=== PATIENT | male | born 1950 | race Caucasian/White ===

== ENCOUNTER 2016-04-11 16:56 | Inpatient (IN) | payer OTHER ==
--- NOTE | 2016-04-11 17:25 | EDPHY ---
H & P Time Seen by Provider: 04/11/16 17:06 HPI/ROS: Chief complaint. Cough HPI. Patient is 65-year-old male presents emergency department with cough and low-grade fever. He has had a cough and low-grade fever. He was on cruise and went to an urgent care in floor just several weeks ago on March 26 and was diagnosed with URI and treated with amoxicillin. Over the past 3 days he has had exertional dyspnea. He has pain in his right ribs with cough and deep breathing. Fever to 100.2 degrees. He also has history of bone marrow transplant, leukemia. ROS Constitutional. Fever and weakness Eyes. no problems with vision ENT. no sore throat, no nasal drainage Cardiovascular. Right-sided chest pain Respiratory. Shortness of breath and cough Abdominal. no abdominal pain, no nausea/vomiting, no diarrhea . no problems urinating MS. no calf pain/swelling, no neck/back pain, no joint pain Skin. no rash Lymph. no swollen glands Neuro. no headache, no dizziness, no difficulty walking or with speech Past Medical/Surgical History: Past medical history hypertension, leukemia, pulmonary embolus, bone marrow transplant, prostate cancer, appendectomy Social History: , nonsmoker, no alcohol Smoking Status: Never smoked Physical Exam: General Appearance: Alert well-developed male temp 37.8degrees heart rate 131 O2 saturation room air 83%. Moderate distress Eyes: Pupils equal and round no pallor or injection. ENT, Mouth: Mucous membranes are moist. Respiratory: No retractions. Rales right lower lung Cardiovascular: Regular rate and rhythm with tachycardia Gastrointestinal: Abdomen is soft and nontender, no masses, bowel sounds normal. Neurological: Awake and alert, sensory and motor exams grossly normal. Skin: Warm and dry, no rashes. Musculoskeletal: Neck is supple nontender. Extremities symmetrical, full range of motion. Psychiatric: Patient is oriented X 3, there is no agitation. Constitutional: Initial Vital Signs Temperature (C) 37.8 C 04/11/16 16:57 Heart Rate 131 H 04/11/16 16:57 Respiratory Rate 22 H 04/11/16 16:57 Blood Pressure 154/87 H 04/11/16 16:57 O2 Sat (%) 83 L 04/11/16 16:57 O2 Delivery Mode Nasal Cannula O2 (L/minute) 2 Allergies/Adverse Reactions: HAYFEVER Allergy (Mild, Uncoded 04/06/15 09:37) SNEEZE, RUNNY NOSE Home Medications: Medication Instructions Recorded Cholecalciferol Vit D3 [Vitamin D3 1,000 units PO DAILY 05/25/14 (*)] Multivitamins [Multivitamin (*)] 1 tab PO DAILY 05/25/14 Herbals/Supplements -Info Only 1 ea PO DAILY 03/20/15 Acyclovir [Zovirax 400 mg (*)] 800 mg PO BID 09/27/15 Potassium Cl [Klor-Con 20 meq (*)] 20 meq PO DAILY 09/27/15 Aspirin EC [Aspirin EC 81 mg (*)] 81 mg PO DAILY@18 11/07/15 Medical Decision Making - Diagnostics EKG Interpretation: EKG interpreted by me shows sinus tachycardia with normal interval. Left axis deviation. QRS is otherwise normal. No significant ST elevation or depression. Rate is 114 Imaging: Chest x-ray interpreted my by me shows bilateral lower lobe pneumonia Procedures: IV normal saline. Blood cultures, lactate Lactate is elevated. The patient has pneumonia. He is not hypotensive. Severe sepsis is declared Patient is given IV Levaquin, and 30 milliliter/kilogram fluid bolus. Repeat lactate is ordered ED Course/Re-evaluation: Re-evaluation 6:10 p.m. patient, his , and I discussed imaging lab results, . We discussed treatment plan including need for admission. They expressed understanding and agreement I consulted and discussed case with Dr. Jeffries, hospitalist who agrees to the admission Differential Diagnosis: I considered pneumonia, bronchitis, influenza, acute coronary syndrome, pulmonary embolus. The patient has a fever and elevated white blood cell count and findings consistent with pneumonia on his chest x-ray. His lactate is elevated and I have declared severe sepsis. He has had blood cultures and antibiotics and 30 milliliter/kilogram fluid bolus. He is not hypotensive Critical Care Time: Critical care time exclusive procedures 40 minutes - Data Points Laboratory Results: Laboratory Results 04/11/16 17:20 04/11/16 17:20 04/11/16 04/11/16 04/11/16 17:20 17:20 17:20 WBC 18.99 10^3/uL H 10^3/uL (3.80-9.50) RBC 3.61 10^6/uL L 10^6/uL (4.40-6.38) Hgb 12.6 g/dL L g/dL (13.7-17.5) Hct 36.8 % L % (40.0-51.0) MCV 101.9 fL H fL (81.5-99.8) MCH 34.9 pg H pg (27.9-34.1) MCHC 34.2 g/dL g/dL (32.4-36.7) RDW 13.8 % % (11.5-15.2) Plt Count 105 10^3/uL L 10^3/uL (150-400) MPV 10.3 fL fL (8.7-11.7) Neut % (Auto) Not Reported Lymph % (Auto) Not Reported [place] % (Auto) Not Reported Eos % (Auto) Not Reported Baso % (Auto) Not Reported Nucleat RBC Rel Count 0.0 % % (0.0-0.2) Absolute Neuts (auto) Not Reported Absolute Lymphs (auto) Not Reported Absolute Monos (auto) Not Reported Absolute Eos (auto) Not Reported Absolute Basos (auto) Not Reported Absolute Nucleated RBC 0.00 10^3/uL 10^3/uL (0-0.01) Immature Gran % Not Reported Immature Gran # Not Reported Platelet Estimate Pending PT 21.4 SEC H SEC (12.0-15.0) INR 1.85 H (0.83-1.16) APTT 35.2 SEC SEC (23.0-38.0) VBG Lactic Acid Sodium 137 mEq/L mEq/L (134-144) Potassium 4.0 mEq/L mEq/L (3.5-5.2) Chloride 101 mEq/L mEq/L (97-110) Carbon Dioxide 22 mEq/l mEq/l (22-31) Anion Gap 14 mEq/L mEq/L (8-16) BUN 11 mg/dL mg/dL (7-23) Creatinine 0.9 mg/dL mg/dL (0.7-1.3) Estimated GFR > 60 Glucose 179 mg/dL H mg/dL (70-100) Calcium 8.8 mg/dL mg/dL (8.5-10.4) Total Bilirubin 1.3 mg/dL mg/dL (0.1-1.4) Influenza Typ A,B (DFA) 04/11/16 04/11/16 17:20 17:17 WBC RBC Hgb Hct MCV MCH MCHC RDW Plt Count MPV Neut % (Auto) Lymph % (Auto) [place] % (Auto) Eos % (Auto) Baso % (Auto) Nucleat RBC Rel Count Absolute Neuts (auto) Absolute Lymphs (auto) Absolute Monos (auto) Absolute Eos (auto) Absolute Basos (auto) Absolute Nucleated RBC Immature Gran % Immature Gran # Platelet Estimate PT INR APTT VBG Lactic Acid 2.2 mmol/L H mmol/L (0.7-2.1) Sodium Potassium Chloride Carbon Dioxide Anion Gap BUN Creatinine Estimated GFR Glucose Calcium Total Bilirubin Influenza Typ A,B (DFA) NEGATIVE FOR FLU (NEGATIVE) Medications Given: Discontinued Medications Sodium Chloride (Ns) 1,000 mls @ 0 mls/hr IV ONCE ONE PRN Reason: Wide Open Stop: 04/11/16 17:36 Last Admin: 04/11/16 17:30 Dose: 1,000 mls Departure - Departure Disposition: [facility] [place] Inpatient Acute Clinical Impression: Severe sepsis Pneumonia Qualifiers: Pneumonia type: due to unspecified organism Laterality: bilateral Lung location : lower lobe of lung Qualified Code(s): J18.9 - Pneumonia, unspecified organism Condition: Fair Referrals: Jordyn Bravo MD [Primary Care Provider] - As per Instructions
[2016-04-11] MEDS: NS 1,000 ML IV ONE ×2 (17:30→18:45)
[2016-04-11 17:43] LABS: ADD MORPH? NO; FRAGMENT RBC FLAG 0 (0-99); HEMATOCRIT 36.8 % (40.0-51.0); HEMOGLOBIN 12.6 g/dL (13.7-17.5); LEFT SHIFT FLG 10 (0-99); LIPEMIA HEMOLYSIS FLAG 90 (0-99); MEAN CELL HEMOGLOBIN 34.9 pg (27.9-34.1); MEAN CELL HEMOGLOBIN CONCENTR. 34.2 g/dL (32.4-36.7); MEAN CELL VOLUME 101.9 fL (81.5-99.8); MEAN PLATELET VOLUME 10.3 fL (8.7-11.7); PLATELET CLUMPS FLAG 0 (0-99); PLATELET COUNT 105 10^3/uL (150-400); RED BLOOD CELL COUNT 3.61 10^6/uL (4.40-6.38); RED CELL DISTRIBUTION WIDTH 13.8 % (11.5-15.2)
[2016-04-11 17:45] LABS: ADD DIFF? YES; ADD SCAN? NO; ATYPICAL LYMPHOCYTE FLAG 300 (0-99)
[2016-04-11 17:57] LABS: INR 1.85 (0.83-1.16); PROTIME(PATIENT) 21.4 SEC (12.0-15.0)
[2016-04-11 17:58] LABS: APTT 35.2 SEC (23.0-38.0)
[2016-04-11] MEDS ORDERED: NS 1,000 ML BAG *FOR SEPSIS ORDER SET ONLY IV ONE (18:10)
[2016-04-11 18:11] LABS: ANION GAP 14 mEq/L (8-16); BILIRUBIN,TOTAL 1.3 mg/dL (0.1-1.4); CALCIUM 8.8 mg/dL (8.5-10.4); CARBON DIOXIDE 22 mEq/l (22-31); CHLORIDE 101 mEq/L (97-110); CREATININE 0.9 mg/dL (0.7-1.3); GLOMERULAR FILTRATION RATE > 60; GLUCOSE 179 mg/dL (70-100); SODIUM 137 mEq/L (134-144)
[2016-04-11 18:30] LABS: PLATELET ESTIMATE DECREASED (ADEQ)
[2016-04-11] MEDS ORDERED: ACETAMINOPHEN 325 MG TAB PO PRN (19:02)
[2016-04-11] MEDS ORDERED: ONDANSETRON 4 MG/2 ML VIAL IVP PRN (19:02)
[2016-04-11] MEDS ORDERED: ONDANSETRON DISINTEGRATING 4 MG TAB PO PRN (19:02)
[2016-04-11] MEDS ORDERED: IOPAMIDOL (ISOVUE-300) 100 ML BTL IV ONE (19:06)
[2016-04-11 19:37] LABS: BILIRUBIN,TOTAL 1.3 mg/dL (0.1-1.4); BILIRUBIN-CONJUGATED 0.6 mg/dL (0.0-0.5); BILIRUBIN-UNCONJUGATED 0.7 mg/dL (0.0-1.1); TOTAL PROTEIN 8.1 g/dL (6.3-8.2)
--- NOTE | 2016-04-11 19:59 | GHP ---
[f rep st] HISTORY AND PHYSICAL DATE OF ADMISSION: 04/11/2016 CHIEF COMPLAINT: Shortness of breath, fever. HISTORY OF PRESENT ILLNESS: This is a 65-year-old man who presents with chief complaint of shortnes s of breath, cough and fever. 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 He went on a cruise about a month ago. During the cruise, he began to have so me malaise and developed a cough. He presented to urgent care after this, was prescribed amoxicilli n for 10 days. He felt slightly better while taking this. He has since returned home. Over the week, he has begun to feel more malaised, his cough has been returning. He has felt significantl y worse over the weekend. Thus, he eventually presented to the emergency department. He does have a history of a pulmonary embolus. He is not on anticoagulation. He does not have any new or change d swelling in his lower extremities. He has had some fevers at home as well. His cough is nonprodu ctive with no hemoptysis. PAST MEDICAL/SURGICAL HISTORY: 1. History of bone marrow transplant last May at [facility] due to T-cell lymphocytic leukemia. 2. Atrial fibrillation in the setting of his bone marrow transplant. 3. History of prostate cancer status post prostatectomy. 4. History of a PE 1 year ago, not on anticoagulation. 5. Hypertension. 6. Hyperlipidemia. MEDICATIONS: Please see medication reconciliation. ALLERGIES: Hay fever. FAMILY HISTORY: No leukemia. SOCIAL HISTORY: Rarely drinks. He does not smoke. REVIEW OF SYSTEMS: A 10-point review of systems is conducted and is negative except per HPI. PHYSICAL EXAMINATION: VITAL SIGNS: Blood pressure 154/87, heart rate is 131, respiration rate 22, satting 93% on room air, temperature is 37.8, T-max 38.2. GENERAL: The patient is a pleasant man, lying on his side, appears mildly uncomfortable, in moderate respiratory distress. HEENT: Pupils e qual, round, reactive. He is normocephalic atraumatic. CARDIOVASCULAR: Tachycardic. There are no murmurs, rubs, or gallops. PULMONARY: Bilateral basilar crackles. ABDOMEN: Soft, nontender, non distended. SKIN: No rash. : No Taylor. NEUROLOGIC: Alert and oriented x3. He is moving all e xtremities. PSYCHIATRIC: Normal mood and affect. LABS: White count is 18.9, hemoglobin 12.6, platelets are 105, INR is 1.8. Lactate is 2.2. Basic metabolic panel is unremarkable. He is negative for influenza. DATA: 1. I reviewed his chart. 2. I personally reviewed and interpreted his chest x-ray, shows bilateral lower lobe infiltrates. IMPRESSION AND PLAN: This is a 65-year-old man with hypoxic respiratory failure. 1. Acute hypoxic respiratory failure: May be due to pneumonia, but given his recent travel history , of PE, and marked hypoxia, I think it is reasonable to get a CT angiogram. I have ordered this. Otherwise, we will treat him with Levaquin for a community-acquired pneumonia. I will check Legione lla and urine antigen and streptococcal antigen. He is positive for pulmonary embolus, would antico agulate him. 2. Systemic inflammatory response syndrome with suspected sepsis: He has elevated lactate. He has received appropriate fluid bolus in the emergency department. We will recheck his lactate. 3. Coagulopathy: I am not sure what to make of this. I have checked LFTs. He has been coagulopat hic in the past. 4. History of atrial fibrillation: Not in atrial fibrillation now. 5. Code status. He would like to be full code. He would not want prolonged life support if he wer e "brain .". 6. VTE risk: He is [id number] risk. I would give him prophylactic dose of Lovenox unless he has pulmonary embolus. /[id number]/MODL
[2016-04-11 20:05] LABS: COLOR YELLOW; LEUKOCYTE ESTERASE,URINE NEGATIVE (NEGATIVE); NITRITE,URINE NEGATIVE (NEGATIVE)
[2016-04-11] MEDS: ENOXAPARIN 100 MG/ML SYR SC SCH (20:43)
[2016-04-11] MEDS ORDERED: CANN-EASE 2 GM TUBE TP PRN (20:45)
[2016-04-11] MEDS: guaiFENesin/CODEINE PHOS 10 ML UDCUP PO PRN (21:44)
[2016-04-11] MEDS: NS 1,000 ML IV SCH (21:44)
--- NOTE | 2016-04-12 04:48 | CPEKG ---
Heart Rate: 114 RR Interval: 526 P-R Interval: 160 QRSD Interval: 86 QT Interval: 344 QTC Interval: 474 P [place]: 53 QRS [place]: -14 T Wave [place]: 37 EKG Severity - OTHERWISE NORMAL ECG - EKG Impression: SINUS TACHYCARDIA Electronically Signed By: Dennis Myers 12-Apr-2016 08:02:36
[2016-04-12] MEDS: guaiFENesin/CODEINE PHOS 10 ML UDCUP PO PRN ×3 (05:27→21:48)
[2016-04-12 05:33] LABS: ADD MORPH? NO; ADD SCAN? YES; FRAGMENT RBC FLAG 0 (0-99); HEMATOCRIT 31.9 % (40.0-51.0); HEMOGLOBIN 10.6 g/dL (13.7-17.5); LEFT SHIFT FLG 20 (0-99); LIPEMIA HEMOLYSIS FLAG 80 (0-99); MEAN CELL HEMOGLOBIN 34.8 pg (27.9-34.1); MEAN CELL HEMOGLOBIN CONCENTR. 33.2 g/dL (32.4-36.7); MEAN CELL VOLUME 104.6 fL (81.5-99.8); MEAN PLATELET VOLUME 10.3 fL (8.7-11.7); PLATELET CLUMPS FLAG 30 (0-99); PLATELET COUNT 81 10^3/uL (150-400); RED BLOOD CELL COUNT 3.05 10^6/uL (4.40-6.38); RED CELL DISTRIBUTION WIDTH 14.3 % (11.5-15.2)
[2016-04-12 05:47] LABS: ANION GAP 8 mEq/L (8-16); CARBON DIOXIDE 23 mEq/l (22-31); CHLORIDE 104 mEq/L (97-110); CREATININE 0.9 mg/dL (0.7-1.3); GLOMERULAR FILTRATION RATE > 60; GLUCOSE 148 mg/dL (70-100); POTASSIUM 4.2 mEq/L (3.5-5.2); SODIUM 135 mEq/L (134-144)
[2016-04-12 05:48] LABS: ATYPICAL LYMPHOCYTE FLAG 300 (0-99)
[2016-04-12 06:09] LABS: ADD DIFF? YES; SCAN POSITIVE
[2016-04-12 06:14] LABS: LARGE PLATELETS PRESENT; PLATELET ESTIMATE DECREASED (ADEQ)
[2016-04-12] MEDS: NS 1,000 ML IV SCH (07:26)
[2016-04-12] MEDS ORDERED: ENOXAPARIN 40 MG/0.4 ML SYR SC SCH (09:00)
[2016-04-12] MEDS: ENOXAPARIN 100 MG/ML SYR SC SCH ×2 (09:40→20:30)
--- NOTE | 2016-04-12 14:34 | HOSPPROG ---
Hospitalist Progress Note Assessment/Plan: #Acute on Chronic P.E -CTA c/w bilateral P.E. R > L #Right sided CAP #Hypoxemia #Hx of HTN, no longer on meds #Hx of T-Cell Leukemia #Hx of Prostate Cancer #Coagulopathy, etiology unclear #Thrombocytopenia, mild Plan: -Stop IVF -Cont Levaquin -Cont Lovenox. He wants to do Pradaxa fpc -Check TTE -Check LE US -Place Telemetry -Recheck labs, INR in a.m. -Await cultures S: Feels better Still with some pain when taking a deep breath Afebrile O: VSS NAD AAOX3 RRR Decreased BS S/NT/ND NO EDEMA LABS/STUDIES: REVIEWED TOTAL CARE TIME IS 35 MINUTES Objective: Vital Signs Temp Pulse Resp BP Pulse Ox 36.9 C 120 H 16 110/72 92 04/12/16 12:00 04/12/16 12:00 04/12/16 12:00 04/12/16 12:00 04/12/16 12:00 Microbiology 04/12/16 05:00 - Final Sputum, Expectorated Laboratory Results 04/12/16 04:44 04/12/16 04:44 04/11/16 04/12/16 04/13/16 05:59 05:59 05:59 Intake Total 4215 Output Total 900 1350 Balance 3315 -1350 PT 21.4 SEC (12.0-15.0) H 04/11/16 17:20 INR 1.85 (0.83-1.16) H 04/11/16 17:20 ICD10 Worksheet Patient Problems: Problems Problem Status Onset Pneumonia Acute Severe sepsis Acute Adenocarcinoma of prostate Acute Anemia Acute Fever Acute Left sided chest pain Acute Left upper arm pain Acute Syncope and collapse Acute
--- NOTE | 2016-04-12 16:51 | ECHO ---
[id number] + + [address] : : [place] [address] : : [phone] + + Adult Echocardiographic Report + -------+ :Name: MELANI LUKE MStudy Date: 04/12/2016 02:35 PM : : Hospital Admission Number: [id number] Locati on: 383: :: 1950 Gender: Male Height: 68 in : :Age: 65 yrs Race: WH Weight: 209 lb : :Reason For Study: Eval RV Fx : : BSA: 2.1 meter s2 : :History: Tachycardia, P.E. Hx of Leukemia, Bone Marrow, PNA : + -------+ MMode/2D Measurements \T\ Calculations IVSd: 0.90 cm LVIDd: 4.2 cm FS: 48.1 % Ao root diam: 3.3 cm LVPWd: 1.0 cm LVIDs: 2.2 cm EDV(Teich): 79.2 ml ACS: 2.0 cm ESV(Teich): 16.0 ml LA dimension: 3.3 cm EF(Teich): 79.8 % Normal Measurement Values: + + :LVIDd (3.5-5.7cm) IVSd (0.6-1.1cm) LVPWd (0.6-1.1cm) Aortic Root (2.0-3.7cm)Left Atrium (1.5-4.0cm): :LV Vol(d) (76-115ml) LV Vol(s) (29-48ml) Ejec Fraction (50-65%)PV Jeferson (0.6- 1.2m/s) TV Jeferson (0.4-1.0m/s) : :MV E Jeferson (0.8-1.0m/s)MV A Jeferson (0.3-1.0m/s)LVOT Jeferson (0.7-1.2m/s) Asc Ao Jeferson ( 0.9-1.8m/s) : + + Doppler Measurements \T\ Calculations MV E max jeferson: Ao V2 max: LV V1 max: PA V2 max: 64.7 cm/sec 179.2 cm/sec 119.4 cm/sec 107.2 cm/sec MV A max jeferson: Ao max PG: LV V1 max PG: PA max P.8 cm/sec 12.8 mmHg 5.7 mmHg 4.6 mmHg MV E/A: 0.70 TR max jeferson: 286.4 cm/sec TR max P.8 mmHg RAP systole: 5.0 mmHg RVSP(TR): 37.8 mmHg Left Ventricle The left ventricle is normal in size. There is normal left ventricular wall thickness. The left ventricular ejection fraction is normal. Tachycardia. Right Ventricle The right ventricle is normal in size and function. Atria The left atrial size is normal. Right atrial size is normal. Mitral Valve The mitral valve is normal in structure and function. There is no evidence of mitral valve prolapse. There is no mitral valve stenosis. There is no mitral regurgitation noted. Tricuspid Valve Normal tricuspid valve. There is trace tricuspid regurgitation. Right ventricular systolic pressure is normal. Aortic Valve The aortic valve is normal in structure and function. There is no aortic stenosis. There is no aortic insufficiency. Pulmonic Valve The pulmonic valve is normal in structure and function. There is no pulmonic valvular regurgitation. Great Vessels The aortic root is normal size. Pericardium/Pleural There is no pericardial effusion. Conclusion A complete two-dimensional transthoracic echocardiogram was performed (2D, M-mode, Doppler and color flow Doppler). Fair image quality. The left ventricular ejection fraction is normal. The right ventricle is normal in size and function. Normal appearing valvular structures. There is trace tricuspid regurgitation. Right ventricular systolic pressure is normal. There is no pericardial effusion. Final Reading Physician: Bhavya James signed on 04/12/2016 04:49 PM Ordering Physician: Kailash Sanchez Performed By: Milton Song, CS
[2016-04-12] MEDS: ATORVASTATIN CALCIUM 20 MG TAB PO SCH (20:31)
[2016-04-13 06:17] LABS: % IMMATURE GRANULYOCYTES 0.6 % (0.0-1.1); ABSOLUTE IMMATURE GRANULOCYTES 0.12 10^3/uL (0.00-0.10); ADD DIFF? NO; ADD MORPH? NO; ADD SCAN? YES; FRAGMENT RBC FLAG 0 (0-99); HEMATOCRIT 31.1 % (40.0-51.0); HEMOGLOBIN 10.3 g/dL (13.7-17.5); LEFT SHIFT FLG 10 (0-99); LIPEMIA HEMOLYSIS FLAG 80 (0-99); MEAN CELL HEMOGLOBIN 34.7 pg (27.9-34.1); MEAN CELL HEMOGLOBIN CONCENTR. 33.1 g/dL (32.4-36.7); MEAN CELL VOLUME 104.7 fL (81.5-99.8); MEAN PLATELET VOLUME 10.2 fL (8.7-11.7); PLATELET CLUMPS FLAG 0 (0-99); PLATELET COUNT 79 10^3/uL (150-400); RED BLOOD CELL COUNT 2.97 10^6/uL (4.40-6.38); RED CELL DISTRIBUTION WIDTH 14.3 % (11.5-15.2)
[2016-04-13 06:18] LABS: ATYPICAL LYMPHOCYTE FLAG 300 (0-99)
[2016-04-13 06:21] LABS: ANION GAP 10 mEq/L (8-16); CALCIUM 8.3 mg/dL (8.5-10.4); CARBON DIOXIDE 26 mEq/l (22-31); CHLORIDE 99 mEq/L (97-110); CREATININE 0.9 mg/dL (0.7-1.3); GLOMERULAR FILTRATION RATE > 60; GLUCOSE 158 mg/dL (70-100); SODIUM 135 mEq/L (134-144)
[2016-04-13 06:50] LABS: SCAN POSITIVE
[2016-04-13 07:01] LABS: POLYCHROMASIA 1+
[2016-04-13 07:02] LABS: PLATELET ESTIMATE DECREASED (ADEQ)
[2016-04-13] MEDS: ENOXAPARIN 100 MG/ML SYR SC SCH (09:35)
[2016-04-13] MEDS: MULTIVITAMINS 1 EACH TAB PO SCH (09:40)
[2016-04-13] MEDS: CHOLECALCIFEROL VIT D3 1,000 UNITS TAB PO SCH (09:40)
[2016-04-13] MEDS: guaiFENesin/CODEINE PHOS 10 ML UDCUP PO PRN ×2 (11:24→21:51)
[2016-04-13] MEDS: oxyCODONE IR 5 MG TAB PO PRN ×2 (12:16→17:57)
--- NOTE | 2016-04-13 15:00 | HOSPPROG ---
Hospitalist Progress Note Assessment/Plan: #Acute on Chronic P.E, Left Popliteal non occlusive clot, unclear chronicity -CTA c/w bilateral P.E. R > L -AC per below #Right sided CAP #Persistent Leukocytosis #Hypoxemia #Hx of HTN, no longer on meds #Hx of T-Cell Leukemia #Hx of Prostate Cancer #Coagulopathy, etiology unclear #Thrombocytopenia Plan: -Stop Levaquin. Start Zosyn -Stop Lovenox. Start Xarelto -Telemetry -Recheck labs, INR in a.m. -Await cultures S: Feels better Still with some pain when taking a deep breath Afebrile Platelets down restart Acyclovir Repeat INR in a.m. O: VSS NAD AAOX3 RRR Decreased BS S/NT/ND NO EDEMA LABS/STUDIES: REVIEWED TOTAL CARE TIME IS 35 MINUTES Objective: Vital Signs Temp Pulse Resp BP Pulse Ox 36.9 C 111 H 28 H 115/77 92 04/13/16 11:33 04/13/16 11:33 04/13/16 11:33 04/13/16 11:33 04/13/16 11:33 Microbiology 04/12/16 05:00 - Final Sputum, Expectorated Laboratory Results 04/13/16 05:11 04/13/16 05:11 04/12/16 04/13/16 04/14/16 05:59 05:59 05:59 Intake Total 4215 2393 780 Output Total 900 2050 Balance 3315 343 780 PT 21.4 SEC (12.0-15.0) H 04/11/16 17:20 INR 1.85 (0.83-1.16) H 04/11/16 17:20 ICD10 Worksheet Patient Problems: Problems Problem Status Onset Pneumonia Acute Severe sepsis Acute Adenocarcinoma of prostate Acute Anemia Acute Fever Acute Left sided chest pain Acute Left upper arm pain Acute Syncope and collapse Acute
[2016-04-13] MEDS: ACYCLOVIR 400 MG TAB PO SCH ×2 (15:49→21:43)
[2016-04-13] MEDS: RIVAROXABAN 15 MG TAB PO SCH (17:32)
[2016-04-13] MEDS: PIPERACILLIN/TAZO 3.375 GM/DEX 50 ML IV SCH (17:32)
[2016-04-13] MEDS ORDERED: NS 1,000 ML IV ONE (18:55)
[2016-04-13] MEDS ORDERED: BISACODYL 10 MG SUPP PR PRN (19:16)
[2016-04-13] MEDS ORDERED: POLYETHYLENE GLYCOL 3350 17 GM PKT PO PRN (19:16)
[2016-04-13] MEDS ORDERED: LACTULOSE 20 GM/30 ML UDCUP PO PRN (19:16)
--- NOTE | 2016-04-13 19:27 | CPEKG ---
Heart Rate: 123 RR Interval: 488 P-R Interval: 164 QRSD Interval: 90 QT Interval: 324 QTC Interval: 464 P [place]: 38 QRS [place]: -44 T Wave [place]: 5 EKG Severity - ABNORMAL ECG - EKG Impression: SINUS TACHYCARDIA EKG Impression: LEFT AXIS DEVIATION EKG Impression: CONSIDER ANTERIOR INFARCT EKG Impression: BORDERLINE T ABNORMALITIES, ANTERIOR LEADS Electronically Signed By: Dennis Myers 14-Apr-2016 07:44:48
[2016-04-13 19:50] LABS: TROPONIN I < 0.012 ng/mL (0-0.034)
[2016-04-13] MEDS: SENNOSIDES/DOCUSATE SODIUM TAB PO SCH (21:43)
[2016-04-13] MEDS: ATORVASTATIN CALCIUM 20 MG TAB PO SCH (21:43)
[2016-04-14] MEDS: oxyCODONE IR 5 MG TAB PO PRN ×5 (02:14→23:43)
[2016-04-14] MEDS: PIPERACILLIN/TAZO 3.375 GM/DEX 50 ML IV SCH ×2 (05:23)
[2016-04-14 06:04] LABS: ABSOLUTE IMMATURE GRANULOCYTES 0.15 10^3/uL (0.00-0.10); ADD DIFF? NO; ADD MORPH? NO; ADD SCAN? YES; FRAGMENT RBC FLAG 0 (0-99); HEMATOCRIT 28.7 % (40.0-51.0); HEMOGLOBIN 9.5 g/dL (13.7-17.5); LEFT SHIFT FLG 10 (0-99); LIPEMIA HEMOLYSIS FLAG 80 (0-99); MEAN CELL HEMOGLOBIN 34.5 pg (27.9-34.1); MEAN CELL HEMOGLOBIN CONCENTR. 33.1 g/dL (32.4-36.7); MEAN CELL VOLUME 104.4 fL (81.5-99.8); MEAN PLATELET VOLUME 10.6 fL (8.7-11.7); PLATELET CLUMPS FLAG 10 (0-99); PLATELET COUNT 75 10^3/uL (150-400); RED BLOOD CELL COUNT 2.75 10^6/uL (4.40-6.38); RED CELL DISTRIBUTION WIDTH 14.3 % (11.5-15.2)
[2016-04-14 06:10] LABS: INR 4.83 (0.83-1.16); PROTIME(PATIENT) 46.2 SEC (12.0-15.0)
[2016-04-14 06:14] LABS: TROPONIN I < 0.012 ng/mL (0-0.034)
[2016-04-14 06:16] LABS: ANION GAP 9 mEq/L (8-16); ATYPICAL LYMPHOCYTE FLAG 300 (0-99); CALCIUM 7.9 mg/dL (8.5-10.4); CARBON DIOXIDE 25 mEq/l (22-31); CHLORIDE 99 mEq/L (97-110); CREATININE 0.9 mg/dL (0.7-1.3); GLOMERULAR FILTRATION RATE > 60; GLUCOSE 167 mg/dL (70-100); POTASSIUM 3.6 mEq/L (3.5-5.2); SODIUM 133 mEq/L (134-144)
[2016-04-14 06:47] LABS: SCAN POSITIVE
[2016-04-14 07:09] LABS: POLYCHROMASIA 1+
[2016-04-14 07:10] LABS: PLATELET ESTIMATE DECREASED (ADEQ)
[2016-04-14 07:11] LABS: MACROCYTES 1+
[2016-04-14] MEDS: RIVAROXABAN 15 MG TAB PO SCH ×2 (08:11→17:42)
[2016-04-14] MEDS: SENNOSIDES/DOCUSATE SODIUM TAB PO SCH ×2 (08:36→22:46)
[2016-04-14] MEDS: CHOLECALCIFEROL VIT D3 1,000 UNITS TAB PO SCH (08:37)
[2016-04-14] MEDS: ACYCLOVIR 400 MG TAB PO SCH ×2 (08:37→22:47)
[2016-04-14] MEDS: MULTIVITAMINS 1 EACH TAB PO SCH (08:37)
[2016-04-14] MEDS: guaiFENesin/CODEINE PHOS 10 ML UDCUP PO PRN ×2 (11:23→23:43)
[2016-04-14] MEDS: PIPERACILLIN SODIUM/TAZOBACTAM 3.375 GM in D5W 50 ML IV SCH ×3 (11:46→22:47)
[2016-04-14] MEDS: MAGNESIUM HYDROXIDE 30 ML UDCUP PO PRN (15:00)
--- NOTE | 2016-04-14 16:17 | HOSPPROG ---
Hospitalist Progress Note Assessment/Plan: #Acute on Chronic P.E, -CTA c/w bilateral P.E. R > L -Xarelto. Was previously on Lovenox. -Left Popliteal non occlusive clot, unclear chronicity #Right sided CAP -On zosyn, was initially on Levaquin #Persistent Leukocytosis, improving #Hypoxemia, stable on 5 L #Hx of HTN, no longer on meds #Hx of T-Cell Leukemia #Hx of Prostate Cancer #Coagulopathy, etiology unclear #Thrombocytopenia Plan: 65 yo male admitted for acute P.E., Right sided pneumonia, and Hypoxemia. Initially met SIRS criteria which resolved with treatment with IVF, IV abx., and PE treatment. He has been off IVF since Hosp day #1 and BP has been acceptable overall. This afternoon he has one isolated BP in the 90's systolic, but overall his BP has been stable. He has good urine output. Tachycardia is improving. He feels like he is able to take a deep breath. Abx were switched to Zosyn with improvement of leukocytosis and clinical improvement. Xarelto was started due to low platelets and need for a half-way agent. Overall he appears to be improving. Continue with all current mgmt. Will recheck labs in a.m.. Will also add a BNP. S: Feels better Still with some pain when taking a deep breath Afebrile Platelets down restart Acyclovir Repeat INR in a.m. O: VSS NAD AAOX3 RRR Decreased BS S/NT/ND NO EDEMA LABS/STUDIES: REVIEWED. WBC 14, Hgb 9.5, platelets: 75 Objective: Vital Signs Temp Pulse Resp BP Pulse Ox 36.8 C 118 H 22 H 98/69 L 94 04/14/16 15:46 04/14/16 15:46 04/14/16 15:46 04/14/16 15:46 04/14/16 15:46 Microbiology 04/12/16 05:00 - Final Sputum, Expectorated Sputum Culture - Final Laboratory Results 04/14/16 05:20 04/14/16 05:20 04/13/16 04/14/16 04/15/16 05:59 05:59 05:59 Intake Total 2393 980 1414 Output Total 0 Balance 530 518 5294 PT 46.2 SEC (12.0-15.0) H D 04/14/16 05:20 INR 4.83 (0.83-1.16) H 04/14/16 05:20 - Time Spent With Patient Time Spent with Patient: greater than 25 minutes Time Spent with Patient: Greater than 25 minutes spent on this patients care, greater than 50% of time spent counseling, educating, and coordinating care regarding the above mentioned plan. - Physical Exam Constitutional: no apparent distress, appears nourished, not in pain Eyes: PERRL, anicteric sclera, EOMI Ears, Nose, Mouth, Throat: moist mucous membranes, hearing normal, ears appear normal, no oral mucosal ulcers Cardiovascular: regular rate and rhythym, no murmur, rub, or gallop Respiratory: reduced air movement Gastrointestinal: normoactive bowel sounds, soft, non-tender abdomen, no palpable masses Genitourinary: no bladder fullness, no bladder tenderness, no renal bruits Skin: warm, normal color Neurologic: AAOx3, sensation intact bilaterally Psychiatric: interacting appropriately, not anxious, not encephalopathic, thought process linear ICD10 Worksheet Patient Problems: Problems Problem Status Onset Pneumonia Acute Severe sepsis Acute Adenocarcinoma of prostate Acute Anemia Acute Fever Acute Left sided chest pain Acute Left upper arm pain Acute Syncope and collapse Acute
[2016-04-14] MEDS: ATORVASTATIN CALCIUM 20 MG TAB PO SCH (22:47)
[2016-04-14] MEDS: OXYMETAZOLINE 30 ML NASAL SPRAY EACHNARE PRN (23:24)
[2016-04-15 05:50] LABS: ABSOLUTE NRBC COUNT 0.02 10^3/uL (0-0.01); ADD MORPH? NO; ADD SCAN? YES; FRAGMENT RBC FLAG 0 (0-99); HEMATOCRIT 26.8 % (40.0-51.0); HEMOGLOBIN 9.1 g/dL (13.7-17.5); LEFT SHIFT FLG 0 (0-99); LIPEMIA HEMOLYSIS FLAG 90 (0-99); MEAN PLATELET VOLUME 10.1 fL (8.7-11.7); NRBC-AUTO% 0.2 % (0.0-0.2); PLATELET CLUMPS FLAG 10 (0-99); PLATELET COUNT 81 10^3/uL (150-400); RED BLOOD CELL COUNT 2.68 10^6/uL (4.40-6.38); RED CELL DISTRIBUTION WIDTH 14.4 % (11.5-15.2)
[2016-04-15 05:51] LABS: ANION GAP 8 mEq/L (8-16); CALCIUM 7.7 mg/dL (8.5-10.4); CARBON DIOXIDE 28 mEq/l (22-31); CHLORIDE 95 mEq/L (97-110); CREATININE 0.8 mg/dL (0.7-1.3); GLOMERULAR FILTRATION RATE > 60; GLUCOSE 152 mg/dL (70-100); POTASSIUM 3.9 mEq/L (3.5-5.2); SODIUM 131 mEq/L (134-144)
[2016-04-15] MEDS: PIPERACILLIN SODIUM/TAZOBACTAM 3.375 GM in D5W 50 ML IV SCH ×3 (05:54→17:27)
[2016-04-15 05:58] LABS: ATYPICAL LYMPHOCYTE FLAG 300 (0-99)
[2016-04-15 06:29] LABS: ADD DIFF? YES; SCAN POSITIVE
[2016-04-15 06:40] LABS: MACROCYTES 1+; PLATELET ESTIMATE DECREASED (ADEQ)
[2016-04-15] MEDS: ACYCLOVIR 400 MG TAB PO SCH ×2 (07:44→21:20)
[2016-04-15] MEDS: oxyCODONE IR 5 MG TAB PO PRN ×2 (07:45→12:29)
[2016-04-15] MEDS: RIVAROXABAN 15 MG TAB PO SCH ×2 (07:45→17:27)
[2016-04-15] MEDS: CHOLECALCIFEROL VIT D3 1,000 UNITS TAB PO SCH (07:45)
[2016-04-15] MEDS: SENNOSIDES/DOCUSATE SODIUM TAB PO SCH ×2 (07:45→21:21)
[2016-04-15] MEDS: guaiFENesin/CODEINE PHOS 10 ML UDCUP PO PRN ×2 (07:46→18:16)
[2016-04-15] MEDS: MAGNESIUM HYDROXIDE 30 ML UDCUP PO PRN (07:46)
[2016-04-15] MEDS: MULTIVITAMINS 1 EACH TAB PO SCH (07:46)
[2016-04-15 09:12] LABS: INR 4.91 (0.83-1.16); PROTIME(PATIENT) 46.8 SEC (12.0-15.0)
[2016-04-15] MEDS ORDERED: PHYTONADIONE 2.5 MG/2.5 ML ORAL UDL PO ONE (09:37)
--- NOTE | 2016-04-15 15:48 | HOSPPROG ---
Hospitalist Progress Note Assessment/Plan: #Acute on Chronic P.E -CTA (personally reviewed and interpreted) bilateral P.E. visualized-Left Popliteal non occlusive clot unclear chronicity - cont Xarelto - cont supplemental O2 # Sepsis 2/2 pulmonary infection - tachycardia and elevated WBC on admit- Bcx NGTD - cont Zosyn # Acute epistaxis overnight - INR > 4 - will reverse with Vit K today # Right sided CAP -On zosyn, was initially on Levaquin # Persistent Leukocytosis- WBC 19-> 13 # Acute hypoxic respiratory failure 2/2 PE and CAP - cont supplementation and treatment above oxygen saturations 96% on 5L - cont Abx and anticoagulation # Hx of HTN- no longer on meds # Hx of T-Cell Leukemia # Hx of Prostate Cancer # Coagulopathy, etiology unclear # Thrombocytopenia Dispo - suspect 24-48 hours from dc 2/2 to epistaixs and control of anticoagulation I have discussed the case with RN - - giving vit K for epistaxis Subjective: nose has been bleeding since early am Objective: Vital Signs Temp Pulse Resp BP Pulse Ox 36.9 C 109 H 16 120/79 96 04/15/16 11:30 04/15/16 11:30 04/15/16 11:30 04/15/16 11:30 04/15/16 11:30 Microbiology 04/12/16 05:00 - Final Sputum, Expectorated Sputum Culture - Final Laboratory Results 04/15/16 04:50 04/15/16 04:50 04/14/16 04/15/16 04/16/16 05:59 05:59 05:59 Intake Total 980 2914 Balance 980 2914 PT 46.8 SEC (12.0-15.0) H 04/15/16 04:50 INR 4.91 (0.83-1.16) H 04/15/16 04:50 - Physical Exam Constitutional: appears nourished Eyes: anicteric sclera Ears, Nose, Mouth, Throat: moist mucous membranes Cardiovascular: regular rate and rhythym Respiratory: no respiratory distress Skin: warm, normal color Musculoskeletal: No asymmetric calves Neurologic: AAOx3 Psychiatric: interacting appropriately Lymph, Heme, Immunologic: no cervical LAD ICD10 Worksheet Patient Problems: Problems Problem Status Onset Pneumonia Acute Severe sepsis Acute Adenocarcinoma of prostate Acute Anemia Acute Fever Acute Left sided chest pain Acute Left upper arm pain Acute Syncope and collapse Acute
[2016-04-15] MEDS: ATORVASTATIN CALCIUM 20 MG TAB PO SCH (21:20)
[2016-04-16] MEDS: PIPERACILLIN SODIUM/TAZOBACTAM 3.375 GM in D5W 50 ML IV SCH ×5 (00:09→22:43)
[2016-04-16] MEDS: oxyCODONE IR 5 MG TAB PO PRN ×2 (00:13→21:33)
[2016-04-16 06:03] LABS: HEMATOCRIT 26.7 % (40.0-51.0); HEMOGLOBIN 8.8 g/dL (13.7-17.5); MEAN CELL HEMOGLOBIN 34.1 pg (27.9-34.1); MEAN CELL VOLUME 103.5 fL (81.5-99.8); RED BLOOD CELL COUNT 2.58 10^6/uL (4.40-6.38); RED CELL DISTRIBUTION WIDTH 14.4 % (11.5-15.2)
[2016-04-16] MEDS: guaiFENesin/CODEINE PHOS 10 ML UDCUP PO PRN ×2 (06:20→22:02)
[2016-04-16 06:33] LABS: PROTIME(PATIENT) 51.6 SEC (12.0-15.0)
[2016-04-16 06:35] LABS: INR 5.55 (0.83-1.16)
[2016-04-16] MEDS ORDERED: PHYTONADIONE 2.5 MG/2.5 ML ORAL UDL PO ONE (06:41)
[2016-04-16] MEDS: SENNOSIDES/DOCUSATE SODIUM TAB PO SCH ×2 (08:22→21:33)
[2016-04-16] MEDS: ACYCLOVIR 400 MG TAB PO SCH ×2 (08:22→21:33)
[2016-04-16] MEDS: MULTIVITAMINS 1 EACH TAB PO SCH (08:23)
[2016-04-16] MEDS: CHOLECALCIFEROL VIT D3 1,000 UNITS TAB PO SCH (08:23)
[2016-04-16] MEDS ORDERED: MAGNESIUM CITRATE 300 ML BOTTLE PO ONE (08:38)
[2016-04-16] MEDS ORDERED: Herbals/Supplements -Info Only PO SCH (09:00)
[2016-04-16] MEDS: RIVAROXABAN 15 MG TAB PO SCH (09:50)
[2016-04-16] MEDS: ENOXAPARIN 100 MG/ML SYR SC SCH ×2 (09:54→22:23)
[2016-04-16 09:57] LABS: ALBUMIN 2.7 g/dL (3.5-5.0); BILIRUBIN,TOTAL 1.3 mg/dL (0.1-1.4); BILIRUBIN-CONJUGATED 0.9 mg/dL (0.0-0.5); BILIRUBIN-UNCONJUGATED 0.4 mg/dL (0.0-1.1); TOTAL PROTEIN 6.6 g/dL (6.3-8.2)
--- NOTE | 2016-04-16 12:20 | GCON ---
HEMATOLOGY CONSULTATION HISTORY OF PRESENT ILLNESS: The patient is a very pleasant, 65-year-old male who is well known to [facility]. The patient has a history of T-cell prolymphocytic leukemia, initially diagnosed in 2012. After progression he was treated with Campath and underwent a stem cell transplantation in the spring. After a somewhat difficult recovery, he has been doing really quite well. His blood counts h ad not quite normalized but had been doing well. I should note that prior to his transplant in 2015, he had some chest pain and was found to have a small subsegmental pulmonary embolism. He received about a month of anticoagulation but this was stopped because of his upcoming transplan t. As noted, he had been doing well. He was on a long cruise last month and towards the end of the cruise developed some cough. He was seen in an urgent care and was prescribed amoxicillin. He had a [address] home from [place] and after arrival had increasing malaise, cough and a fever. He pre sented to the emergency room and evaluation showed, on CT angiogram, dense right lower lobe pulmonar y consolidation and bilateral pulmonary embolic disease significantly more extensive on the right si de. Differential of the right lower lobe consolidation with either pulmonary infarct and/or pneumon ia. Patient was admitted and placed on Lovenox. At the time of admission, his white count was 18,000, hemoglobin 12.6, hematocrit 36.8, and platelet count 105,000. His INR I believe shortly after admission was 1.85. He has been doing better with decreased need for oxygen and decrease in his right-sided chest pain. He was placed on Xarelto on . A couple of INRs subsequently have been in the 4-5 range. He does have occasional cough w hich is productive of bloody sputum but that seems to be improving. PAST MEDICAL HISTORY: Is significant for atrial fibrillation in the setting of his bone marrow irizarry splant which has resolved, history of prostate cancer, status post prostatectomy; this was a Mala 7 cancer staged as a T3a. He has since been followed with observation. He has history of hyperten sola, hyperlipidemia. SOCIAL HISTORY: He is . He is a nonsmoker. PHYSICAL EXAMINATION: GENERAL: Today, he is a pleasant, alert male. He is wearing oxygen. LUNGS: Bibasilar rales. CARDIAC: Normal S1, S2 without murmurs, clicks or added sounds. ABDOMEN: Aleksey gn. LABORATORY DATA: Additional lab work shows fairly significant elevation in his AST, ALT and alkalin e phosphatase. They are in the 300 range. Platelets, as noted, are 75,000, hemoglobin 8.8, hematoc rit is 26.7. IMPRESSION: The patient has had another pulmonary embolism, perhaps brought on by travel and perhap s by a concurrent respiratory infection. He was treated with Lovenox and more recently has been on Xarelto. His INR is elevated but I think this is something that can certainly be seen with Xarelto, although the elevation in the INR is somewhat unpredictable. I think he is a reasonable candidate for continuing on Xarelto and after discussion with Dr. Lopez we will probably switch him back to Xarelto tomorrow. I think he may need a fairly significant duration of anticoagulation, at least 3- 6 months. A hypercoagulable workup might be reasonable down the road. He has elevated liver functi on tests and fat is noted on his liver on ultrasound. I think some of this could be related to his right-sided PE/infarct in the right lower lobe and these will need to be followed. His blood counts are decreased but I think this is related to his intercurrent illness and stem cell damage from his underlying disease and transplant. His counts are not critical at this time but probably should be followed over the next couple of days. Our service will continue to follow with you. /[id number]/MODL
--- NOTE | 2016-04-16 15:47 | HOSPPROG ---
Hospitalist Progress Note Assessment/Plan: #Acute on Chronic P.E with infarct-CTA - bilateral P.E. visualized-Left Popliteal non occlusive clot unclear chronicity CXR (personally reviewed and interpreted) worsening Right sided pneumonitis - switch Xarelto to lovenox today - cont supplemental O2 # Abnormal INR - suspect related to xarelto - pt with minimal intermittent epistxis consulted Dr. Lockett today - switching to lovenox today - checking LFT's - recheck INR and if stable restart xarelto in am # Sepsis 2/2 pulmonary infection - tachycardia and elevated WBC on admit- Bcx NGTD - cont Zosyn # Acute epistaxis overnight - INR 5.5 this am - no response to Vit K # Right sided CAP -On zosyn, was initially on Levaquin # Persistent Leukocytosis- WBC 19-> 13 # Acute hypoxic respiratory failure 2/2 PE and CAP - cont supplementation and treatment above oxygen saturations 95% on 3L - cont Abx and anticoagulation # Hx of HTN- no longer on meds # Hx of T-Cell Leukemia- counts stable low # Hx of Prostate Cancer # Coagulopathy, etiology unclear # Thrombocytopenia Dispo - suspect 24-48 hours from dc 2/2 to epistaixs and control of anticoagulation I have discussed the case with Dr. Lockett - we feels abnormal elevation in INR likely from xarelto - feels safe to restart xarelto tomorrow Subjective: feels stronger today Objective: Vital Signs Temp Pulse Resp BP Pulse Ox 36.8 C 97 16 112/64 95 04/16/16 11:33 04/16/16 11:33 04/16/16 11:33 04/16/16 11:33 04/16/16 11:33 Laboratory Results 04/16/16 05:25 04/15/16 04:50 04/15/16 04/16/16 04/17/16 05:59 05:59 05:59 Intake Total 2914 200 560 Balance 2914 200 560 PT 51.6 SEC (12.0-15.0) H 04/16/16 05:25 INR 5.55 (0.83-1.16) H* 04/16/16 05:25 - Physical Exam Constitutional: chronically ill appearing Eyes: anicteric sclera Ears, Nose, Mouth, Throat: moist mucous membranes Cardiovascular: regular rate and rhythym Respiratory: no respiratory distress, no rales or rhonchi Gastrointestinal: normoactive bowel sounds, soft, non-tender abdomen Genitourinary: no bladder fullness Skin: warm, normal color Musculoskeletal: No asymmetric calves Neurologic: AAOx3 Psychiatric: interacting appropriately, not anxious Lymph, Heme, Immunologic: no cervical LAD ICD10 Worksheet Patient Problems: Problems Problem Status Onset Pneumonia Acute Severe sepsis Acute Adenocarcinoma of prostate Acute Anemia Acute Fever Acute Left sided chest pain Acute Left upper arm pain Acute Syncope and collapse Acute
[2016-04-16] MEDS: OXYMETAZOLINE 30 ML NASAL SPRAY EACHNARE PRN (22:02)
[2016-04-16] MEDS: ATORVASTATIN CALCIUM 20 MG TAB PO SCH (22:03)
[2016-04-16 22:37] LABS: HEMATOCRIT 26.3 % (40.0-51.0); HEMOGLOBIN 8.9 g/dL (13.7-17.5); MEAN CELL HEMOGLOBIN 35.2 pg (27.9-34.1); MEAN CELL HEMOGLOBIN CONCENTR. 33.8 g/dL (32.4-36.7); RED BLOOD CELL COUNT 2.53 10^6/uL (4.40-6.38); RED CELL DISTRIBUTION WIDTH 14.5 % (11.5-15.2)
[2016-04-16 22:49] LABS: INR 2.42 (0.83-1.16); PROTIME(PATIENT) 26.6 SEC (12.0-15.0)
[2016-04-17] MEDS: PIPERACILLIN SODIUM/TAZOBACTAM 3.375 GM in D5W 50 ML IV SCH ×2 (05:37→12:36)
[2016-04-17 05:52] LABS: INR 2.19 (0.83-1.16); PROTIME(PATIENT) 24.5 SEC (12.0-15.0)
[2016-04-17] MEDS: ACYCLOVIR 400 MG TAB PO SCH ×2 (08:29→21:03)
[2016-04-17] MEDS: SENNOSIDES/DOCUSATE SODIUM TAB PO SCH ×2 (08:29→21:05)
[2016-04-17] MEDS: guaiFENesin/CODEINE PHOS 10 ML UDCUP PO PRN ×2 (08:30→21:04)
[2016-04-17] MEDS: oxyCODONE IR 5 MG TAB PO PRN ×2 (08:30→21:03)
[2016-04-17] MEDS: MULTIVITAMINS 1 EACH TAB PO SCH (08:30)
[2016-04-17] MEDS: CHOLECALCIFEROL VIT D3 1,000 UNITS TAB PO SCH (08:30)
[2016-04-17] MEDS ORDERED: RIVAROXABAN 15 MG TAB PO SCH (10:43)
[2016-04-17] MEDS: RIVAROXABAN 15 MG TAB PO SCH ×2 (11:07→17:40)
--- NOTE | 2016-04-17 11:30 | SOAPPROG ---
[facility] Progress Note Assessment/Plan: Assessment: 1. T-prolymphocytic leukemia - s/p Campath and autoSCT 10 months ago. 2. Mild anemia and thrombocytopenia due to transplant 3. Recurrent PE 4. Slightly elevated lymphocyte count- unclear if it is related to is T-PLL or not Elevated INR has resolved. likely related to Xarelto. Plan: - resume Xarelto - hypercoag w/u as outpt per Dr. Lockett - consider ENT eval if epistaxis is persistent - f/u for his chronic leukemia with Dr. Lockett as well. Could consider peripheral blood flow and/or BMBx if lymphocyte count continues to rise. 04/17/16 11:28 04/17/16 11:30 Subjective: epistaxis (L) last night. better now. no other bleeding. Objective: Exam: Gen: NAD lungs CTAB CV RRR no MGR Abd: +BS NT ND Ext: no edema Vital Signs Temp Pulse Resp BP Pulse Ox 36.9 C 99 16 107/61 93 04/17/16 07:35 04/17/16 07:35 04/17/16 07:35 04/17/16 07:35 04/17/16 07:35 Laboratory Results 04/16/16 22:20 04/15/16 04:50 04/16/16 04/17/16 04/18/16 05:59 05:59 05:59 Intake Total 200 1160 Balance 200 1160 PT 24.5 SEC (12.0-15.0) H 04/17/16 04:56 INR 2.19 (0.83-1.16) H 04/17/16 04:56 ICD10 Worksheet Patient Problems: Problems Problem Status Onset Pneumonia Acute Severe sepsis Acute Adenocarcinoma of prostate Acute Anemia Acute Fever Acute Left sided chest pain Acute Left upper arm pain Acute Syncope and collapse Acute
[2016-04-17] MEDS: ENOXAPARIN 100 MG/ML SYR SC SCH (11:39)
--- NOTE | 2016-04-17 13:12 | HOSPPROG ---
Hospitalist Progress Note Assessment/Plan: #Acute on Chronic P.E with infarct-CTA - bilateral P.E. visualized-Left Popliteal non occlusive clot unclear chronicity CXR (personally reviewed and interpreted) worsening Right sided pneumonitis - switch back to Xarelto today - cont supplemental O2 # Abnormal INR - suspect related to xarelto - pt with minimal intermittent epistaxis INR 5.5-> 2.1 off Xarelto for 24 hours - switch back to Xarelto today # elevated LFT's - suspect related to acute illness - US RUQ(reviewed) without acute stones or cholecystitis - recheck in am prior to dc - heme/onc will follow outpt # Sepsis 2/2 pulmonary infection - tachycardia and elevated WBC on admit- Bcx NGTD - cont antibiotics # Acute epistaxis overnight - INR 5.5 this am - no response to Vit K # Right sided CAP -On zosyn-> will transition to PO levofloxacin today # Persistent Leukocytosis- WBC 19-> 14 this am # Acute hypoxic respiratory failure 2/2 PE and CAP - cont supplementation and treatment above oxygen saturations 96% on 1L - cont Abx and anticoagulation # Hx of HTN- no longer on meds # Hx of T-Cell Leukemia- counts stable # Hx of Prostate Cancer # Thrombocytopenia # Dispo - anticipate tomorrow if epistaxis remains stable I have discussed the case with Dr. Ballard - we will restart Xarelto today pt can follow with Cathryn for his leukemia Subjective: epistaxis overnight Objective: Vital Signs Temp Pulse Resp BP Pulse Ox 36.8 C 108 H 18 125/72 H 96 04/17/16 12:00 04/17/16 12:00 04/17/16 12:00 04/17/16 12:00 04/17/16 12:00 Laboratory Results 04/16/16 22:20 04/15/16 04:50 04/16/16 04/17/16 04/18/16 05:59 05:59 05:59 Intake Total 200 1160 Balance 200 1160 PT 24.5 SEC (12.0-15.0) H 04/17/16 04:56 INR 2.19 (0.83-1.16) H 04/17/16 04:56 - Physical Exam Constitutional: appears nourished Eyes: anicteric sclera Ears, Nose, Mouth, Throat: moist mucous membranes Cardiovascular: regular rate and rhythym Respiratory: no respiratory distress, No expiratory wheeze Gastrointestinal: normoactive bowel sounds, soft, non-tender abdomen Genitourinary: no bladder fullness Skin: warm, normal color Musculoskeletal: No asymmetric calves Neurologic: AAOx3 Psychiatric: interacting appropriately, not anxious Lymph, Heme, Immunologic: no cervical LAD ICD10 Worksheet Patient Problems: Problems Problem Status Onset Pneumonia Acute Severe sepsis Acute Adenocarcinoma of prostate Acute Anemia Acute Fever Acute Left sided chest pain Acute Left upper arm pain Acute Syncope and collapse Acute
[2016-04-17] MEDS: ATORVASTATIN CALCIUM 20 MG TAB PO SCH (21:03)
[2016-04-18 05:37] LABS: HEMATOCRIT 25.9 % (40.0-51.0); HEMOGLOBIN 8.5 g/dL (13.7-17.5); MEAN CELL HEMOGLOBIN 34.1 pg (27.9-34.1); MEAN CELL HEMOGLOBIN CONCENTR. 32.8 g/dL (32.4-36.7); RED BLOOD CELL COUNT 2.49 10^6/uL (4.40-6.38); RED CELL DISTRIBUTION WIDTH 14.7 % (11.5-15.2)
[2016-04-18 06:12] LABS: ALANINE AMINOTRANSFERASE 249 IU/L (21-72); ALBUMIN 2.8 g/dL (3.5-5.0); ALKALINE PHOSPHATASE 250 IU/L (38-126); ANION GAP 8 mEq/L (8-16); ASPARTATE AMINOTRANSFERASE 112 IU/L (17-59); BILIRUBIN,TOTAL 0.9 mg/dL (0.1-1.4); CALCIUM 8.3 mg/dL (8.5-10.4); CARBON DIOXIDE 26 mEq/l (22-31); CHLORIDE 100 mEq/L (97-110); CREATININE 0.9 mg/dL (0.7-1.3); GLOMERULAR FILTRATION RATE > 60; GLUCOSE 155 mg/dL (70-100); POTASSIUM 4.6 mEq/L (3.5-5.2); SODIUM 134 mEq/L (134-144); TOTAL PROTEIN 6.8 g/dL (6.3-8.2)
[2016-04-18] MEDS: SENNOSIDES/DOCUSATE SODIUM TAB PO SCH (08:13)
[2016-04-18] MEDS: ACYCLOVIR 400 MG TAB PO SCH (08:14)
[2016-04-18] MEDS: MULTIVITAMINS 1 EACH TAB PO SCH (08:14)
[2016-04-18] MEDS: CHOLECALCIFEROL VIT D3 1,000 UNITS TAB PO SCH (08:15)
[2016-04-18] MEDS: RIVAROXABAN 15 MG TAB PO SCH (08:30)
[2016-04-18] MEDS: oxyCODONE IR 5 MG TAB PO PRN ×2 (08:30→13:21)
[2016-04-18] MEDS: guaiFENesin/CODEINE PHOS 10 ML UDCUP PO PRN ×2 (08:32→13:21)
[2016-04-18 12:04] VITALS: BP 114/69; PULSE 105; RESP 14; TEMP 98.3; O2SAT 92
--- NOTE | 2016-04-18 16:29 | GDS ---
DISCHARGE DIAGNOSES: Include: 1. Acute bilateral pulmonary emboli with infarct. 2. Right-sided community-acquired pneumonia. 3. Sepsis, secondary to pulmonary source. 4. Acute leukocytosis. 5. Acute hypoxic respiratory failure, secondary to pulmonary embolus and community-acquired pneumon ia. 6. Hypertension. 7. History of T-cell leukemia. 8. History of prostate cancer. 9. Abnormal international normalized ratio, thought secondary to his Xarelto. HISTORY OF PRESENT ILLNESS: This is a 65-year-old male, who presented on 04/11/2016 with complaints of shortness of breath. For details of patient's initial presentation, please see the history and physical dated 04/11/2016. PROCEDURES ON THIS PATIENT: On 04/11/2016, patient had a CTA of the chest that showed bilateral pul monary emboli with significant involvement on the right with pulmonary infarct. HOSPITAL COURSE BY ISSUE: 1. Bilateral pulmonary emboli: Patient was initially placed on heparin, then transitioned quickly to Xarelto therapy with good response. Oxygenation improved over the course of the first 72 hours. Patient is requiring 1-2 L of oxygen depending on activity on the day of disposition. Supplemental O2 will be provided. Patient will be discharged on Xarelto therapy, expecting treatment for 6 zuleyma hs at a minimum. He will be followed by his oncologist, Dr. Lockett, in the outpatient setting. 2. Right lower lobe pneumonia: It was unclear. Patient presented with leukocytosis, cough, fever, and abnormalities consistent with infarct and/or infiltrate. Patient has empirically been treated f or pneumonia, in addition to his pulmonary embolism. He will complete a 7-day course with 2 days of oral levofloxacin after disposition. Cultures drawn in the early part of his hospital stay are no g rowth to date at the time of his discharge. 3. Elevated INR: Patient had an INR that peaked at 5.5 on Xarelto therapy. It was held for 1 day and we watched a laboratory decline in the INR. Hematology/Oncology is comfortable with patient milagros Gallardo in the outpatient setting. 4. Epistaxis: This has been controllable with pressure alone. We have provided the patient with A frin and recommendations to follow with outpatient ENT if needed for ongoing epistaxis. Suspect thi s is likely related to oxygen use and when he is weaned off oxygen, should have fewer difficulties w ithout ongoing nosebleeds. 5. History of T-cell leukemia: Patient will be followed closely by Dr. Lockett in the outpatient sett ing. 6. Sepsis, secondary to pulmonary infection: Patient was treated with empiric antibiotics. Blood cultures remain negative. Vital signs have normalized on the day of disposition. MEDICATIONS AT THE TIME OF DISPOSITION: Please reference medication reconciliation printed on 04/18. FOLLOWUP APPOINTMENTS FOR THIS PATIENT: Include with Dr. Lockett on 05/01/2016 for his first postop f ollowup and oxygen check. I spent greater than 30 minutes in the planning and coordination of this discharge. /[id number]/MODL
== END 2016-04-18 15:33 | disposition home or self-care (01) | DRG 871 ==
LOC: F3E 20:01
PROVIDERS: ADMIT Internal Medicine; ATTEND Hospitalist
DX: A41.9 Sepsis, unspecified organism (principal); J18.9 Pneumonia, unspecified organism; R65.20 Severe sepsis without septic shock; J96.21 Acute and chronic respiratory failure with hypoxia; I26.99 Other pulmonary embolism without acute cor pulmonale; R04.0 Epistaxis; I10 Essential (primary) hypertension; C91.60 Prolymphocytic leukemia of T-cell type not having achieved remission; D69.6 Thrombocytopenia, unspecified; E78.5 Hyperlipidemia, unspecified; Z85.46 Personal history of malignant neoplasm of prostate
CPT/HCPCS: 87449-90; 96365; 97116-GP; 97161-GP; 97165-GO; 97530-GO; 97535-GO; G8978-GP-CI; G8978-GP-CK; G8979-GP-CI; G8980-GP-CI; G8987-GO-CL; G8988-GO-CI; J1650; J1956; J2405; J2543; Q9967

== ENCOUNTER → 2016-05-31 | Outpatient (CLI) | payer OTHER | LOC: FIMAGING 09:49 | PROVIDERS: ATTEND Internal Medicine Hematology & Oncology | DX: J18.9 Pneumonia, unspecified organism (principal) ==

== ENCOUNTER 2016-09-01 05:22 | Day surgery (SDC) | payer OTHER ==
--- NOTE | 2016-08-28 16:49 | GHP ---
[f rep st] PREOP HISTORY AND PHYSICAL DATE OF ADMISSION: 09/01/2016 ANTICIPATED DATE OF SURGERY: 09/01/2016. PREOPERATIVE DIAGNOSIS: T-cell prolymphocytic leukemia. HISTORY OF PRESENT ILLNESS: The patient is a 66-year-old man who was diagnosed with T-cell prolymphocytic leukemia in August of 2012. He had a port placed in January of [address] Daniel. He completed chemotherapy and had his left- sided port removed in January of 2016. He now presents with recurrence and need for additional chemotherapy. We will attempt port placement on the right side. PAST MEDICAL HISTORY: Anemia, coronary artery disease, hypertension, hyperlipidemia, leukemia, atrial fibrillation, history of PE. PAST SURGICAL HISTORY: Port placement, prostate, appendectomy, tonsillectomy. ALLERGIES: No known drug allergies. FAMILY HISTORY: Significant for hyperlipidemia and hypertension. SOCIAL HISTORY: He is with 1 child. He denies tobacco, alcohol or recreational drug use. REVIEW OF SYSTEMS: A 10-point review of systems negative aside from HPI. PHYSICAL EXAMINATION: GENERAL: Well-developed, well-nourished man, in no acute distress. HEENT: Normocephalic, atraumatic. No hearing deficits. Pupils equal and round. No scleral icterus. Mucous membranes moist. NECK: Trachea midline. RESPIRATORY: Clear to auscultation bilaterally. No increased work of breathing. CARDIOVASCULAR: Regular rate and rhythm. No peripheral edema. CHEST: Left port removal site well healed. SKIN: Warm and dry. No rash. MUSCULOSKELETAL: Normal gait. Normal nails. PSYCH: Mood and affect normal. NEURO: Grossly intact. IMPRESSION AND PLAN: The patient is a 66-year-old man with T-cell prolymphocytic leukemia who requires a port for chemotherapy. We will attempt port placement on the right side. We discussed the benefit of a port including easier access for chemotherapy. We discussed risks of surgery including, but not limited to stroke, heart attack, , blood clots, infection bleeding and pneumothorax. We discussed that if the port ever becomes infected it will need to be removed. He and his had their questions answered to their satisfaction.. Stop Xarelto. May need platelets prior to surgery. /[id number]/MODL MTDD
[2016-09-01] MEDS ORDERED: ceFAZolin 2 GM/DEXTROSE 100 ML IV ONE (06:06)
[2016-09-01] MEDS ORDERED: LIDOCAINE 1% 2 ML INJ ID PRN (06:07)
[2016-09-01] MEDS ORDERED: LR 1,000 ML IV ONE (06:07)
--- NOTE | 2016-09-01 06:20 | PDHPUP ---
History & Physical Update H&P update statement: This history and physical update is based on an assessment of the patient which was completed after admission or registration (within 24 hours), but prior to the surgery/procedure. H&P update: H&P reviewed & patient examined (transplant failed. needs port for chemo)
[2016-09-01 06:55] LABS: % IMMATURE GRANULYOCYTES 0.3 % (0.0-1.1); ABSOLUTE NRBC COUNT 0.06 10^3/uL (0-0.01); ADD DIFF? NO; ADD MORPH? NO; ADD SCAN? YES; FRAGMENT RBC FLAG 0 (0-99); HEMATOCRIT 39.9 % (40.0-51.0); HEMOGLOBIN 13.6 g/dL (13.7-17.5); LEFT SHIFT FLG 10 (0-99); LIPEMIA HEMOLYSIS FLAG 90 (0-99); MEAN CELL HEMOGLOBIN 35.8 pg (27.9-34.1); MEAN CELL HEMOGLOBIN CONCENTR. 34.1 g/dL (32.4-36.7); MEAN PLATELET VOLUME 9.5 fL (8.7-11.7); NRBC-AUTO% 0.1 % (0.0-0.2); PLATELET CLUMPS FLAG 0 (0-99); PLATELET COUNT 57 10^3/uL (150-400); RED CELL DISTRIBUTION WIDTH 14.7 % (11.5-15.2)
[2016-09-01 07:05] LABS: ATYPICAL LYMPHOCYTE FLAG 230 (0-99)
[2016-09-01] MEDS ORDERED: MIDAZOLAM 2 MG/2 ML VIAL IVP ONE (07:33)
[2016-09-01] MEDS ORDERED: BUPIVACAINE 0.5% 30 ML SDV ONE (07:33)
--- NOTE | 2016-09-01 07:36 | PDANEPAE ---
ANE Past Medical History - Cardiovascular History Hx Hypertension: Yes Hx Arrhythmias: No Hx Chest Pain: Yes Hx Coronary Artery / Peripheral Vascular Disease: Yes Hx CHF / Valvular Disease: No Hx Palpitations: No Cardiovascular History Comment: HIGH CHOL. ANEMIA - PAST HX. LEUKEMIA - CURRENT. PAT - NO RECENT/CURRENT EPISODES - Pulmonary History Hx COPD: No Hx Asthma/Reactive Airway Disease: No Hx Recent Upper Respiratory Infection: No Hx Oxygen in Use at Home: No Hx Sleep Apnea: No Sleep Apnea Screening Result - Last Documented: Negative Pulmonary History Comment: DENIES SOB W STAIRS. PNEUMONIA 04/11/16 HOSPITALIZED W/PE - Neurologic History Hx Cerebrovascular Accident: No Hx Seizures: No Hx Dementia: No - Endocrine History Hx Diabetes: No Hypothyroid: No Hyperthyroid: No Obesity: no - Renal History Hx Renal Disorders: Yes Renal History Comment: PROSTATECTOMY. ' - Liver History Hx Hepatic Disorders: No - Neurological & Psychiatric Hx Hx Neurological and Psychiatric Disorders: No - Cancer History Hx Cancer: Yes Cancer History Comment: DX LEUKEMIA, FOLLOWED BY DR DE LA ROSA. PROSTATE CA - Congenital Disorder History Hx Congenital Disorders: No - GI History Hx Gastrointestinal Disorders: No Gastrointestinal History Comment: SM HERNIA - Other Health History Other Health History: 4 TEETH PULLED TEEN, WISDOM TEETH REM. 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 BONE MARROW TRANSPLANT. PORT PLACEMENT 02/2015 & REMOVED. TONSILS. APPY JENSEN Review of Systems - Exercise capacity METS (RN): 4 METS - Systems Cardiac: Reports: no symptoms ANE Patient History - Allergies Allergies/Adverse Reactions: HAYFEVER Allergy (Mild, Uncoded 05/25/14 09:37) SNEEZE, RUNNY NOSE - Home Medications Home Medications: Cholecalciferol Vit D3 [Vitamin D3 (*)] 1,000 units PO DAILY 05/25/14 [Last Taken 04/11/16] Multivitamins [Multivitamin (*)] 1 tab PO DAILY 05/25/14 [Last Taken 04/11/16] Herbals/Supplements -Info Only 1 ea PO DAILY 03/20/15 [Last Taken 04/11/16] Acyclovir [Zovirax 400 mg (*)] 800 mg PO BID 09/27/15 [Last Taken 04/11/16] Atorvastatin Calcium [Lipitor 20 mg (*)] 20 mg PO HS 04/11/16 [Last Taken ] Metoprolol Succinate 08/31/16 [Last Taken Unknown] - NPO status NPO Since - Liquids (Date): 08/31/16 NPO Since - Liquids (Time): 20:00 NPO Since - Solids (Date): 08/31/16 NPO Since - Solids (Time): 18:00 - Smoking Hx Smoking Status: Never smoked - Family Anes Hx Family Hx Anesthesia Complications: NONE ANE Labs/Vital Signs - Labs Result Diagrams: 09/01/16 06:06 - Vital Signs Blood Pressure: 133/84 Heart Rate: 66 Respiratory Rate: 15 O2 Sat (%): 95 Height: 172.72 cm Weight: 95.254 kg ANE Physical Exam - Airway Neck exam: FROM Mallampati Score: Class 3 Mouth exam: normal dental/mouth exam - Pulmonary Pulmonary: no respiratory distress - Cardiovascular Cardiovascular: regular rate and rhythym, no murmur, rub, or gallop - ASA Status ASA Status: II ANE Anesthesia Plan Anesthesia Plan: GA w LMA
[2016-09-01] MEDS ORDERED: LIDOCAINE 2% 5 ML SDV ONE ×2 (08:07→11:41)
[2016-09-01] MEDS ORDERED: fentaNYL 100 MCG/2 ML INJ ONE ×2 (08:07→11:40)
[2016-09-01] MEDS ORDERED: PROPOFOL 200 MG/20 ML VIAL ONE ×2 (08:08→11:41)
[2016-09-01] MEDS ORDERED: NALOXONE HCL 0.4 MG/ML INJ IVP PRN (08:23)
[2016-09-01 08:27] LABS: SCAN POSITIVE
[2016-09-01 08:34] LABS: PLATELET ESTIMATE DECREASED (ADEQ)
[2016-09-01 08:36] LABS: MACROCYTES 2+; POLYCHROMASIA 1+
[2016-09-01] MEDS ORDERED: ACETAMINOPHEN 500 MG TAB PO PRN (08:38)
[2016-09-01] MEDS ORDERED: LR 500 ML IV PRN (08:38)
[2016-09-01] MEDS ORDERED: HYDROCODONE/APAP 5/325 TAB PO PRN (08:38)
[2016-09-01] MEDS ORDERED: ONDANSETRON 4 MG/2 ML VIAL IVP PRN (08:38)
[2016-09-01] MEDS ORDERED: OXYCODONE/APAP 5/325 TAB PO PRN (08:38)
[2016-09-01] MEDS ORDERED: fentaNYL 100 MCG/2 ML INJ IVP PRN (08:38)
[2016-09-01] MEDS ORDERED: PROMETHAZINE HCL 25 MG/ML INJ IVP PRN (08:38)
--- NOTE | 2016-09-01 09:16 | POSTOPPROG ---
Post Op Note Date of Operation: 09/01/16 Surgeon: Dayan Daniel Anesthesiologist: meg Anesthesia: GET(General Endotracheal) Pre-op Diagnosis: leukemia Post-op Diagnosis: same Indication: 66yo M with leukemia who needs a port for chemo Procedure: L US-guided IJ power port placement Findings: none unusual Inf/Abcess present in the surg proc area at time of surgery?: No Depth: Deep Incisional (Fascial) EBL: Minimal Complications: none immediately post-op Specimen(s): none
--- NOTE | 2016-09-01 09:39 | POSTANESTH ---
Post Anesthetic Evaluation Cardiovascular Status: Normal, Stable Respiratory Status: Normal, Stable Level of Consciousness/Mental Status: Can Participate in Eval Pain Control: Adequate, Prn Tx Ordered Nausea/Vomiting Control: Adequate, Prn Tx Ordered Complications Possibly Related to Anesthesia: None Noted
[2016-09-01 11:24] VITALS: RESP 16
[2016-09-01] MEDS ORDERED: DEXAMETHASONE 4 MG/ML VIAL ONE (11:40)
[2016-09-01] MEDS ORDERED: ROCURONIUM 50 MG/5 ML VIAL ONE (11:40)
[2016-09-01] MEDS ORDERED: RANITIDINE 50 MG/2 ML VIAL ONE (11:40)
[2016-09-01] MEDS ORDERED: PROPOFOL/EMULSION 500 MG/50 ML BOTTLE IV ONE (11:40)
[2016-09-01] MEDS ORDERED: REMIFENTANIL HCL 1 MG VIAL ONE (11:40)
[2016-09-01 13:43] VITALS: BP 141/92; PULSE 67; TEMP 97.9; O2SAT 98
--- NOTE | 2016-09-06 07:44 | GOP ---
[f rep st] OPERATIVE REPORT DATE OF OPERATION: 09/01/2016 SURGEON: Dayan Daniel MD ANESTHESIOLOGIST: Jonatan Gaytan DO. PREOPERATIVE DIAGNOSIS: Recurrent leukemia. POSTOPERATIVE DIAGNOSIS: Recurrent leukemia. PROCEDURE PERFORMED: Left ultrasound-guided internal jugular PowerPort placement. FINDINGS: Tip at the RA-SVC junction. SPECIMENS: None. ESTIMATED BLOOD LOSS: 10 cc. INDICATIONS: The patient is a 66-year-old, who underwent a transplant that unfortunately did not work for him. He presents for a port for additional chemotherapy. DESCRIPTION OF PROCEDURE: Patient was brought into the operating room, placed supine on the table, and general anesthesia was administered. Bilateral neck and chest were prepped and draped in the usual sterile fashion. He was placed in the Trendelenburg position. I used the ultrasound to access his left internal jugular vein with dark return of blood flow. I threaded the guidewire and removed the needle. Placement was confirmed with fluoroscopy. I created a pocket to accommodate the port in the left chest. I tunneled this up to the insertion site. The port was measured under fluoroscopy and cut to size. Using the Seldinger technique, I placed a dilator and sheath over the wire, removed the wire and the dilator, and placed the catheter through the sheath and peeled away the sheath. Placement was confirmed with fluoroscopy. The port withdrew blood easily and was flushed with heparin. I closed the pocket with 3-0 Vicryl, followed by 4-0 Monocryl. Dermabond was applied. There was still some oozing from his neck incision, so I placed a gauze and Tegaderm over this area. In the PACU, I was able to remove that. He tolerated the procedure well. He was awakened in the operating room, extubated, transferred to PACU in stable condition. /[id number]/MODL MTDD
== END 2016-09-01 13:32 | disposition home or self-care (01) ==
LOC: FSGY 05:22 → EEVIPCON 11:15 → FSGY 13:32
PROVIDERS: ATTEND Surgery
PROC: 02HV33Z Insertion of Infusion Device into Superior Vena Cava, Percutaneous Approach (ICD-10-PCS; principal; 2016-09-01 07:45)
PROC: B5141ZZ Fluoroscopy of Left Jugular Veins using Low Osmolar Contrast (ICD-10-PCS; principal; 2016-09-01 07:45)
PROC: 0JH60XZ Insertion of Tunneled Vascular Access Device into Chest Subcutaneous Tissue and Fascia, Open Approach (ICD-10-PCS; principal; 2016-09-01 07:45)
PROC: B544ZZ3 Ultrasonography of Left Jugular Veins, Intravascular (ICD-10-PCS; principal; 2016-09-01 07:45)
PROC: 30233R1 Transfusion of Nonautologous Platelets into Peripheral Vein, Percutaneous Approach (ICD-10-PCS; principal; 2016-09-01 07:45)
DX: C91.6 Prolymphocytic leukemia of T-cell type (principal); D63.0 Anemia in neoplastic disease; I25.10 Atherosclerotic heart disease of native coronary artery without angina pectoris; I10 Essential (primary) hypertension; E78.5 Hyperlipidemia, unspecified; I48.91 Unspecified atrial fibrillation; Z86.711 Personal history of pulmonary embolism
CPT/HCPCS: 36561; 71010; 76001; P9037; C1788; J0690; J1100; J1642; J2250; J2704; J2780; J3010

== ENCOUNTER 2016-12-14 10:36 | Outpatient (CLI) | payer OTHER ==
[2016-12-14] MEDS ORDERED: diphenhydrAMINE 25 MG CAP PO ONE (11:00)
[2016-12-14] MEDS ORDERED: ACETAMINOPHEN 325 MG TAB PO ONE (11:00)
[2016-12-14] MEDS ORDERED: ACETAMINOPHEN 325 MG TAB ONE (11:15)
== END 2016-12-14 12:45 | disposition home or self-care (01) ==
LOC: FOBOP 10:36
PROVIDERS: ATTEND Internal Medicine Hematology & Oncology
PROC: 30233R1 Transfusion of Nonautologous Platelets into Peripheral Vein, Percutaneous Approach (ICD-10-PCS; principal; 2016-12-14)
DX: C91.10 Chronic lymphocytic leukemia of B-cell type not having achieved remission (principal)
CPT/HCPCS: 36430; J1642; Q9988

== ENCOUNTER 2016-12-25 12:46 | Outpatient (CLI) | payer OTHER ==
[2016-12-25 13:24] VITALS: BP 114/63; PULSE 87; RESP 18; TEMP 98.1; O2SAT 94
== END 2016-12-25 15:05 | disposition home or self-care (01) ==
LOC: F1NOP 12:46
PROVIDERS: ATTEND Nurse Practitioner
PROC: 30233R1 Transfusion of Nonautologous Platelets into Peripheral Vein, Percutaneous Approach (ICD-10-PCS; principal; 2016-12-25)
DX: C91.60 Prolymphocytic leukemia of T-cell type not having achieved remission (principal)
CPT/HCPCS: 36430; P9037

== ENCOUNTER 2016-12-29 12:11 | Outpatient (CLI) | payer OTHER ==
[2016-12-29] MEDS ORDERED: ACETAMINOPHEN 325 MG TAB PO ONE (12:45)
[2016-12-29] MEDS ORDERED: diphenhydrAMINE 25 MG CAP PO ONE (12:45)
[2016-12-29] MEDS ORDERED: NS 100 ML BAG (MINI-BAG) IV ONE (13:02)
== END 2016-12-29 14:55 | disposition home or self-care (01) ==
LOC: FOBOP 12:11
PROVIDERS: ATTEND Internal Medicine Hematology & Oncology
PROC: 30233R1 Transfusion of Nonautologous Platelets into Peripheral Vein, Percutaneous Approach (ICD-10-PCS; principal; 2016-12-29)
DX: C91.10 Chronic lymphocytic leukemia of B-cell type not having achieved remission (principal)
CPT/HCPCS: 36430; J1642; Q9988

== ENCOUNTER 2017-01-08 10:39 | Observation (INO) | payer OTHER ==
[2017-01-08] MEDS ORDERED: ACETAMINOPHEN 325 MG TAB PO PRN (11:10)
[2017-01-08] MEDS ORDERED: ONDANSETRON DISINTEGRATING 4 MG TAB PO PRN (11:10)
[2017-01-08] MEDS ORDERED: ONDANSETRON 4 MG/2 ML VIAL IVP PRN (11:10)
[2017-01-08] MEDS ORDERED: diphenhydrAMINE 25 MG CAP PO ONE (11:18)
[2017-01-08] MEDS ORDERED: ACETAMINOPHEN 325 MG TAB PO ONE (11:18)
--- NOTE | 2017-01-08 11:23 | PDGENHP ---
History and Physical History and Physical: CC: Anemia HISTORY: This patient with leukemia on chemotherapy is sent in for transfusions with severe anemia. He has been on pending statin therapy for leukemia. He has had required transfusion in the past. Back in September he had hemoglobin of 13 most recently couple weeks ago hemoglobin of 8 and his hemoglobin today is 4. He also recently had platelet transfusion and his current platelet count is 6000. Reviewing his laboratory data it appears to me that likely he would not respond significantly to platelet transfusion 1 recently given but I have to clarify that with the Oncology Service. Patient has not had any bleeding or bruising. He denies any fevers. He does notice some significant exertional dyspnea and some postural lightheadedness. He has not had anything that sounds like angina, orthopnea, and no leg edema. He has not been nauseous has no abdominal pain. 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 I have reviewed the list and ordered appropriate medicines. PHYSICAL EXAMINATION: Vital Signs: Mild tachycardia at just over 100 otherwise normal vital signs without fever Examination: General: alert, oriented, good mentation, relaxed Skin: warm, dry, good color, no rash HEENT: normal Neck: no mass or jvd Resps: relaxed Lungs: clear breath sounds Heart: regular, no murmur Abdomen: soft, nondistended, nontender, +BS, no mass Upper Extremities: normal Lower Extremities: no edema, warm No Bleeding or bruising Neurologic: normal speech/language, normal juice bar team member, no focal weakness IV site: looks normal LABORATORY DATA: Hemoglobin 4.6, platelets 6000, and these numbers are both notably lower than on his most recent test. He has a very high lymphocyte count but has neutrophils at 8000 so is not neutropenic. Glucose elevated 324 Sodium slightly low at 133 is probably due the high glucose AST 72 alkaline phosphatase 216 with normal bilirubin Normal renal function RADIOLOGY STUDIES: None so far today ASSESSMENT: -severe and symptomatic anemia caused by chemotherapy, transfusion indicated on an emergent basis -severe thrombocytopenia caused by chemotherapy; he has not been tremendously responsive to platelet transfusions with only a small rise in platelet count in the past. However given his severe anemia any bleeding could be catastrophic and getting his platelet count from 6000 to even 9000 or 10,000 might make a big difference in bleeding risk -mild metabolic acidosis is likely due to tissue hypoxemia from his severe anemia -diabetes mellitus with current glucose greater than 300; will need diabetic diet, medical treatment and close monitoring -T cell lymphoma last dose of chemotherapy little over week ago PLANS: -stat transfusion 2 units red blood cells, will review transfusion goals with Dr. Lockett but I suspect that it will be useful to give him more blood than that at this time -determine with Dr. Lockett whether he actually responded to previous platelet transfusions and determine if we should give platelets now -will treat his blood sugars appropriately and continue careful monitoring of that I have reviewed the patient's case in detail with Dr. Dixon I have reviewed the patient's past medical records as part of this assessment, including outpatient laboratory data and previous hospitalization records
[2017-01-08] MEDS ORDERED: SENNOSIDES/DOCUSATE SODIUM TAB PO PRN (11:44)
[2017-01-08 16:45] LABS: COLOR AMBER; LEUKOCYTE ESTERASE,URINE NEGATIVE (NEGATIVE); NITRITE,URINE NEGATIVE (NEGATIVE)
[2017-01-08 16:47] LABS: MUCUS 1+ /lpf (NONE-1+)
[2017-01-08] MEDS ORDERED: ATORVASTATIN CALCIUM 20 MG TAB PO SCH (21:00)
[2017-01-08] MEDS: ACYCLOVIR 400 MG TAB PO SCH (21:41)
[2017-01-08] MEDS: METOPROLOL TARTRATE 25 MG TAB PO SCH (21:42)
--- NOTE | 2017-01-08 23:38 | GCON ---
[f rep st] CONSULTATION HEMATOLOGY/ONCOLOGY INITIAL VISIT PRIMARY ONCOLOGIST: Dr. Maria Del Carmen Lockett REASON FOR VISIT: T-cell prolymphocytic leukemia. HISTORY OF PRESENT ILLNESS: The patient is a 66-year-old gentleman who has been undergoing chemotherapy for T-cell prolymphocytic leukemia. Most recently , he has been back on pentostatin. His history has been complex. He was initially diagnosed in August 2012. He was initially started on Campath and underwent autologous stem cell transplantation in the spring 2015. Just prior to the transplant, he was diagnosed with a small pulmonary embolism and received about a month of anticoagulation. When the disease progressed, it was felt that he was not an allogeneic transplant candidate, so he is on pentostatin , which he responded to. Developed, I believe, a rash. He was put back on Campath, but was not really responding to it, so he is back on pentostatin again. He was admitted to the hospital because of an acute drop in his hemoglobin. On the , his hemoglobin was 8.5 and, this morning, it was 4.6. His white count last week was 160,000. Today, it is down to 45. Platelet counts went from 12,000 down to 6000. The patient denies having any acute bleeding. He was able to walk into the clinic, but he has been very tired. He denied any chest pain or trouble breathing. He denies any fevers but he has been a little lightheaded. ALLERGIES: He has no known drug allergies. HOME MEDICATIONS: Bactrim, Senokot, multivitamin, metoprolol, some herbs and supplements, vitamin D, Lipitor and acyclovir. PAST MEDICAL HISTORY: Other chronic illnesses include 1. T-cell prolymphocytic leukemia as described in HPI. 2. Previous history of prostate cancer, treated with prostatectomy. 3. History of pulmonary embolism, not on anticoagulation at this time. 4. Hypertension. 5. Dyslipidemia. 6. Previous atrial fibrillation. PAST SURGICAL HISTORY: 1. Prostatectomy, as described above. 2. Appendectomy. FAMILY HISTORY: Significant for coronary artery disease. Father had prostate cancer but in his early 90s. SOCIAL HISTORY: Does not smoke. He only drinks alcohol occasionally. He works at the [employer] a couple of days a week. REVIEW OF SYSTEMS: A 10-point review of systems was performed. Pertinent positives per HPI. Otherwise, negative. PHYSICAL EXAMINATION: VITAL SIGNS: Temperature is 36.8. Pulse is 110. Blood pressure 143/78. GENERAL: He is pale but in good spirits, in no distress. HEENT: Sclerae are nonicteric. Oral mucosa is unremarkable. LUNGS: Clear. CARDIAC: Regular with a soft systolic murmur. ABDOMEN: Soft, nontender without hepatosplenomegaly. NODES: No axillary or supraclavicular lymphadenopathy. LABORATORY: As per HPI with a white count today of 45,000 and hemoglobin 4.3 g/ dL, platelet count of 6,000. ANC was 8,500. Glucose up a little bit 324. Other chemistries unremarkable including total bilirubin at 1.2. IMPRESSION: 1. Acute and significant drop in hemoglobin. 2. Severe thrombocytopenia secondary to underlying disease and treatment. 3. T-cell prolymphocytic leukemia. 4. History of coronary artery disease and pulmonary emboli. PLAN: I am not sure why his hemoglobin dropped so rapidly. There is no history of significant bleeding. We will guaiac his stools to make sure there is no obvious blood. If it is positive, we can consider having GI evaluate him while in the hospital. The plan is admit him and to gently transfuse him both with blood and platelets. He is not an allogeneic bone marrow transplant so he does not need irradiated blood. Dr. Lockett is also working on other treatment options for the patient, although he does seem to respond even if temporarily to pentostatin. We will follow along with you. /[id number]/MODL MTDD
[2017-01-09 05:24] LABS: ABSOLUTE NRBC COUNT 0.15 10^3/uL (0-0.01); ADD DIFF? YES; ADD MORPH? YES; FRAGMENT RBC FLAG 0 (0-99); HEMATOCRIT 25.7 % (40.0-51.0); HEMOGLOBIN 9.1 g/dL (13.7-17.5); LEFT SHIFT FLG 40 (0-99); LIPEMIA HEMOLYSIS FLAG 90 (0-99); MEAN CELL HEMOGLOBIN 37.4 pg (27.9-34.1); MEAN CELL HEMOGLOBIN CONCENTR. 35.4 g/dL (32.4-36.7); MEAN CELL VOLUME 105.8 fL (81.5-99.8); MEAN PLATELET VOLUME 11.3 fL (8.7-11.7); NRBC-AUTO% 0.1 % (0.0-0.2); PLATELET CLUMPS FLAG 60 (0-99); RED BLOOD CELL COUNT 2.43 10^6/uL (4.40-6.38)
[2017-01-09 05:29] LABS: ATYPICAL LYMPHOCYTE FLAG 300 (0-99); RED CELL DISTRIBUTION WIDTH 23.9 % (11.5-15.2)
[2017-01-09 05:30] LABS: ADD SCAN? YES; PLATELET COUNT 18 10^3/uL (150-400)
[2017-01-09 05:40] LABS: ALANINE AMINOTRANSFERASE 49 IU/L (21-72); ALBUMIN 2.6 g/dL (3.5-5.0); ALKALINE PHOSPHATASE 189 IU/L (38-126); ANION GAP 7 mEq/L (8-16); ASPARTATE AMINOTRANSFERASE 54 IU/L (17-59); BILIRUBIN,TOTAL 2.5 mg/dL (0.1-1.4); CALCIUM 7.5 mg/dL (8.5-10.4); CARBON DIOXIDE 26 mEq/l (22-31); CHLORIDE 102 mEq/L (97-110); CREATININE 0.8 mg/dL (0.7-1.3); GLOMERULAR FILTRATION RATE > 60; GLUCOSE 152 mg/dL (70-100); POTASSIUM 4.1 mEq/L (3.5-5.2); SODIUM 135 mEq/L (134-144); TOTAL PROTEIN 6.6 g/dL (6.3-8.2)
[2017-01-09 05:50] LABS: BILIRUBIN-CONJUGATED 0.7 mg/dL (0.0-0.5); BILIRUBIN-UNCONJUGATED 1.8 mg/dL (0.0-1.1)
[2017-01-09 06:17] LABS: MACROCYTES 1+; MICROCYTES 1+
[2017-01-09 06:18] LABS: PLATELET ESTIMATE DECREASED (ADEQ); POLYCHROMASIA 1+; SMUDGE CELLS 3+
[2017-01-09 07:27] VITALS: BP 122/76; PULSE 99; RESP 14; TEMP 97.8
[2017-01-09] MEDS: METOPROLOL TARTRATE 25 MG TAB PO SCH (08:48)
[2017-01-09] MEDS: ACYCLOVIR 400 MG TAB PO SCH (08:48)
[2017-01-09 08:56] VITALS: O2SAT 94
[2017-01-09] MEDS ORDERED: MULTIVITAMINS 1 EACH TAB PO SCH (09:00)
[2017-01-09] MEDS ORDERED: CHOLECALCIFEROL VIT D3 1,000 UNITS TAB PO SCH (09:00)
--- NOTE | 2017-01-09 11:06 | SOAPPROG ---
SOAP Progress Note Assessment/Plan: E&M for leukemia * T-cell Prolymphocytic Leukemia: currently on pentostatin per DR. Lockett. Further therapy options are limited. * Anemia and thrombocytopenia: much improved from 2 units PRBC and 1 unit platelets; suspect yesterdays very low hgb was not accurate but he was symptomatic from the anemia which has improved with transfusion. * Guaiac positive stool: he has seen Dr. Campos in the past. Offered to keep him and discuss with GI but he would prefer to go home and follow up outpatient. I will let Dr. Lockett know. * Disposition: clinically he is doing well without obvious signs of bleeding. No contra-indication for him to go home from H/O standpoint Subjective: Feels much better this morning. Denies any bleeding. No GI complaints. Objective: Vital Signs Temp Pulse Resp BP Pulse Ox 36.6 C 99 14 122/76 H 94 01/09/17 07:25 01/09/17 07:25 01/09/17 07:25 01/09/17 07:25 01/09/17 08:55 Laboratory Results 01/09/17 05:10 01/09/17 05:10 01/08/17 01/09/17 01/10/17 05:59 05:59 05:59 Intake Total 2375 Output Total 250 Balance 2125 Laboratory Tests 01/08/17 22:17 Stool Occult Bld Scrn POSITIVE H Physical Exam - Physical Exam General Appearance: no apparent distress Respiratory: lungs clear Cardiac/Chest: regular rate, rhythm Abdomen: non-tender, soft ICD10 Worksheet Patient Problems: Problems Problem Status Onset Adenocarcinoma of prostate Acute Anemia Acute Fever Acute Left sided chest pain Acute Left upper arm pain Acute Pneumonia Acute Severe sepsis Acute Syncope and collapse Acute
--- NOTE | 2017-01-09 16:47 | ASDISCHSUM ---
Discharge Information Plan Status:Home with No Needs Medically Cleared to Leave: Discharge Date:01/09/2017 12:35 PM CM D/C Disposition:Home, Routine, Self-Care ADT D/C Disposition:Home, Routine, Self-Care Projected Discharge Date:01/09/2017 12:35 PM Transportation at D/C:Family Discharge Delay Reason: Follow-Up Date:01/09/2017 12:35 PM Discharge Slot: Final Diagnosis: Placement Information Patient Contact Information Contact Name:SUSAN Relationship: Address:[address] [place] [address] City:[place] Phone: [facility]/Zip Code:[place] [address] Email: Financial Information Financial Class: Primary Plan Desc:MEDICARE OUTPATIENT Primary Plan Number:[id number] Secondary Plan Desc:[employer]DE[employer]ITY Secondary Plan Number:[id number] Assessment Information Intervention Information Intervention Type:*WILL-Signed Date of Service:01/09/2017 09:43 AM Patient Type:Observation Staff Member:Bibi Rodriguez Hours: Discipline: Severity: Comment:
--- NOTE | 2017-01-09 17:38 | PDDCSUM ---
Discharge Summary Discharge Summary: DISCHARGE DIAGNOSES: -severe symptomatic anemia caused by cancer and cancer chemotherapy -thrombocytopenia caused by cancer chemotherapy -heme-positive stool -lymphoma [facility]: This patient has ongoing severe anemia from his lymphoma and chemotherapy, but came in at this time for transfusion when his hemoglobin was measured to have decreased from 8.5-4 over period of several days. He did have some exertional dyspnea but no other signs of complications. There was no renal failure. Notably he had no GI symptoms but had heme-positive stool. The patient was transfused with 2 units and his hemoglobin came up to 9. Is therefore unclear whether his hemoglobin actually was spuriously measured low. He had no other complications and no signs of bleeding here in the hospital otherwise. He was transfused platelets in came up to 16,000 from 6000. The patient is stable for discharge at this time and has an appoint with Dr. Goodson next week. He is therefore discharged home. Because of the heme-positive stool we recommended that he start some acid suppression therapy with twice daily Pepcid and will follow up with his GI doctor Andres. The question will be whether to pursue any diagnostic evaluation. With his low platelets endoscopy could be hazardous and it does not seem that will be able to get his platelets up very well. PENDING TEST RESULTS: None MEDICATION CHANGES: Addition of Pepcid 20 mg twice daily FOLLOW-UP PLAN: Dr. Goodson next week Greater than 35 minutes bedside and care coordination time today
[2017-01-13] MEDS ORDERED: SULFAMETHOX/TMP 800/160 MG 1 TAB PO SCH (09:00)
== END 2017-01-09 12:35 | disposition home or self-care (01) ==
LOC: F1N 10:39 → UNDOADMOB 10:54
PROVIDERS: ADMIT Hospitalist; ATTEND Hospitalist
PROC: 30233N1 Transfusion of Nonautologous Red Blood Cells into Peripheral Vein, Percutaneous Approach (ICD-10-PCS; principal; 2017-01-08)
PROC: 30233R1 Transfusion of Nonautologous Platelets into Peripheral Vein, Percutaneous Approach (ICD-10-PCS; principal; 2017-01-08)
DX: C91.50 Adult T-cell lymphoma/leukemia (HTLV-1-associated) not having achieved remission (principal); D63.0 Anemia in neoplastic disease; D69.6 Thrombocytopenia, unspecified; R19.5 Other fecal abnormalities
CPT/HCPCS: 36430; G0378; G0379; J1642; P9016; P9040; Q9988; 83010-90

== ENCOUNTER 2017-01-17 12:27 | Outpatient (CLI) | payer OTHER | END 2017-01-17 17:45 | disposition home or self-care (01) | LOC: FOBOP 12:27 | PROVIDERS: ATTEND Internal Medicine Hematology & Oncology | PROC: 30233R1 Transfusion of Nonautologous Platelets into Peripheral Vein, Percutaneous Approach (ICD-10-PCS; principal; 2017-01-17) | PROC: 30233N1 Transfusion of Nonautologous Red Blood Cells into Peripheral Vein, Percutaneous Approach (ICD-10-PCS; principal; 2017-01-17) | DX: C61 Malignant neoplasm of prostate (principal); C91.10 Chronic lymphocytic leukemia of B-cell type not having achieved remission | CPT/HCPCS: 36430; J1642; P9016; P9037; P9040 ==

== ENCOUNTER 2017-01-31 10:22 | Outpatient (CLI) | payer OTHER ==
[2017-01-31] MEDS ORDERED: HEPARIN PRESERV FREE 1 UNIT/1 ML 5 ML SYR IVP SCH (11:00)
== END 2017-01-31 18:00 | disposition home or self-care (01) ==
LOC: FOBOP 10:22
PROVIDERS: ATTEND Internal Medicine Hematology & Oncology
PROC: 30233N1 Transfusion of Nonautologous Red Blood Cells into Peripheral Vein, Percutaneous Approach (ICD-10-PCS; principal; 2017-01-31)
DX: C61 Malignant neoplasm of prostate (principal); C91.10 Chronic lymphocytic leukemia of B-cell type not having achieved remission
CPT/HCPCS: 36430; J1642; P9016; P9037; P9040

== ENCOUNTER 2017-02-06 00:58 | Observation (INO) | payer OTHER ==
[2017-02-06] MEDS ORDERED: NS 1,000 ML IV ONE (01:09)
[2017-02-06] MEDS ORDERED: ONDANSETRON 4 MG/2 ML VIAL IVP ONE (01:09)
--- NOTE | 2017-02-06 01:11 | CPEKG ---
Heart Rate: 161 RR Interval: 373 P-R Interval: 76 QRSD Interval: 82 QT Interval: 276 QTC Interval: 452 P [place]: 0 QRS [place]: -12 T Wave [place]: 179 EKG Severity - ABNORMAL ECG - EKG Impression: SUPRAVENTRICULAR TACHYCARDIA EKG Impression: REPOLARIZATION ABNORMALITY, PROB RATE RELATED Electronically Signed By: Arthur Mckinney 06-Feb-2017 07:24:41
--- NOTE | 2017-02-06 01:14 | EDPHY ---
H & P HPI/ROS: HPI CHIEF COMPLAINT: Generalized weakness, nausea, vomiting, cancer patient HISTORY OF PRESENT ILLNESS: Patient a pleasant 66-year-old male, significant past medical history for T-cell lymphoma, hypertension, hyperlipidemia, severe anemia the severe thrombocytopenia, presents emergency room by EMS as he complains of global generalized weakness nausea vomiting. Patient reports that he is actively dying from cancer. He has enrolled in hospice with [facility]. Patient states that he is a DNR. He does not want to be resuscitated. He states however he would like IV fluids for hydration and Zofran for nausea. Decided come to the hospital tonight due to ongoing nausea vomiting global weakness. Patient tells me that Dr. Lockett is his oncologist. They decided that he would no longer further go under any more treatment for his cancer. Patient reports that he is enrolled in hospice and has appointment tomorrow morning at 10:00 a.m. with them. However he is requesting be admitted to the hospital for IV fluids and nausea medicine. He states his cannot take care of him at home at this point. Will additionally get hospice involved at this time. Patient wishes to be DNR. Past Medical History: T cell lymphoma, hypertension, hyperlipidemia, anemia, thrombocytopenia, unsuccessful bone marrow transplant Past Surgical History: Left chest port Social History: denies drugs alcohol tobacco products resides in a private residence. Family History: ROS REVIEW OF SYSTEMS: A comprehensive 10 point review of systems is otherwise negative aside from elements mentioned in the history of present illness. Exam Constitutional appears dehydrated, nontoxic. triage nursing summary reviewed, vital signs reviewed, awake/alert. Tachycardic upon arrival. Eyes normal conjunctivae and sclera, EOMI, PERRLA. HENT normal inspection, atraumatic, moist mucus membranes, no epistaxis, neck supple/ no meningismus, no raccoon eyes. Respiratory clear to auscultation bilaterally, normal breath sounds, no respiratory distress, no wheezing. Cardiovascular tachycardic, regular rhythm, no murmur, no edema, distal pulses normal. Gastrointestinal soft, non-tender, no rebound, no guarding, normal bowel sounds, no distension, no pulsatile mass. Genitourinary no CVA tenderness. Musculoskeletal no midline vertebral tenderness, full range of motion, no calf swelling, no tenderness of extremities, no meningismus, good pulses, neurovascularly intact. Skin pink, warm, & dry, no rash, skin atraumatic. Neurologic awake, alert and oriented x 3, AAOx3, moves all 4 extremities equally, motor intact, sensory intact, CN II-XII intact, normal cerebellar, normal vision, normal speech. Psychiatric normal mood/affect. Heme/Lymph/Immune no lymphadenopathy. Differential Diagnosis: Includes but is not limited to in a particular order: Lymphoma, dehydration, electrolyte disturbance, GI bleed, severe anemia, severe thrombocytopenia, sepsis, wish to pursue hospice care, failure to thrive, generalized weakness Medical Decision Making: Plan for this patient will hydrate him with IV fluids and nausea medicine check basic blood work will consult Oncology. Will distally consult hospice bed will try to make him comfortable. Re-evaluation: 0117: Spoke with Dr. Neal Goodson who is on-call with Oncology went over the case with him he will see the patient consultation in the hospital. Spoke with [facility] at 0126AM: Met with [facility] on Jan 24. However at that time there is a possibility was still pending undergo chemotherapy. So he was not fully enrolled in hospice. 0144AM: I had a lengthy discussion with the family at bedside as well as daughter as well as the patient he is a DNR. He does not want to be resuscitated. Additionally I asked him about blood products and platelets as his platelets are critically low and he does not want any blood transfusion. He is interested in enrolling in hospice. For tonight he would like to be made comfortable he would like IV fluids nausea medicine and pain control. I will him to the hospital for these reasons of nausea dehydration. However he is not interested any further medical care. Hospice will see him later today to enroll him and provide him treatment options. CBC reviewed thrombocytopenia 3000. EKG interpretation by me on record in [employer] system. Impression time of EKG 1:10 a.m., supraventricular tachycardia 161. Current vital signs: 0146am: Heart rate 106, pressure 112/73, pulse ox 92% on room air. Afebrile. Spoke with Dr. Yarbrough the hospitalist they agreed to admit. Source: Patient, EMS - Personal History Tetanus Vaccine Date: 2009- will recieve in June 07, 2016 s/p transplant - Medical/Surgical History Hx Asthma: No Hx Chronic Respiratory Disease: No Hx Diabetes: No Hx Cardiac Disease: No Hx Renal Disease: No Hx Cirrhosis: No Hx Alcoholism: No Hx HIV/AIDS: No Hx Splenectomy or Spleen Trauma: No Other PMH: HTN, leukemia, PE, BONE MARROW TRANSPLANT. prostate Ca, prostate removal, tonsillectomy, appenectomy - Social History Smoking Status: Never smoked Constitutional: Initial Vital Signs Temperature (C) 36.7 C 02/06/17 01:00 Heart Rate 166 H 02/06/17 01:00 Respiratory Rate 20 02/06/17 01:00 Blood Pressure 131/71 H 02/06/17 01:00 O2 Sat (%) 96 02/06/17 01:00 O2 Delivery Mode Room Air Allergies/Adverse Reactions: HAYFEVER Allergy (Mild, Uncoded 02/06/17 01:40) SNEEZE, RUNNY NOSE Home Medications: Medication Instructions Recorded Acetaminophen [Tylenol 325mg (*)] 650 mg PO Q4HRS PRN tab 02/06/17 HYDROmorphone HCL [Dilaudid] 0.5 - 1 mg IVP Q2HRS PRN inj 02/06/17 LORazepam [Ativan (*)] 0.5 - 1 mg PO Q8HRS PRN tab 02/06/17 Ondansetron HCl Pf [Zofran 4 mg 4 mg IVP Q4HRS PRN vial 02/06/17 Inj (*)] Polyethylene Glycol 3350 [Miralax 17 gm PO DAILY PRN pkt 02/06/17 17 gm (*)] Promethazine HCl [Phenergan 6.25 - 12.5 mg IVP Q6HRS PRN inj 02/06/17 Injection] Sennosides/Docusate Sodium 1 - 2 tab PO BID tab 02/06/17 [Senokot-S] diphenhydrAMINE [Benadryl 25 MG 25 - 50 mg PO Q6HRS PRN cap 02/06/17 (*)] Medical Decision Making - Data Points Laboratory Results: Laboratory Results 02/06/17 01:00 02/06/17 01:00 Medications Given: Discontinued Medications Sodium Chloride (Ns) 1,000 mls @ 0 mls/hr IV EDNOW ONE; Wide Open PRN Reason: Protocol Stop: 02/06/17 01:10 Last Admin: 02/06/17 01:30 Dose: 1,000 mls Lorazepam (Ativan) 0.5 - 1 mg PO Q8HRS PRN PRN Reason: Anxiety, Able to Take PO Stop: 08/05/17 02:07 Last Admin: 02/06/17 16:25 Dose: 0.5 mg Ondansetron HCl (Zofran) 4 mg IVP EDNOW ONE Stop: 02/06/17 01:10 Last Admin: 02/06/17 01:32 Dose: 4 mg Ondansetron HCl (Zofran) 4 mg IVP Q4HRS PRN PRN Reason: Nausea/Vomiting, Can't Take PO Stop: 08/05/17 02:07 Last Admin: 02/06/17 06:42 Dose: 4 mg Polyethylene Glycol (Miralax) 17 gm PO DAILY PRN; Protocol PRN Reason: Constipation, patient prefers Stop: 08/05/17 03:54 Last Admin: 02/06/17 08:03 Dose: 17 gm Promethazine HCl (Phenergan) 6.25 - 12.5 mg IVP Q6HRS PRN PRN Reason: Nausea/Vomiting, Use 2nd Stop: 08/05/17 02:07 Last Admin: 02/06/17 08:11 Dose: 6.25 mg Senna/Docusate Sodium (Senokot-S) 1 - 2 tab PO BID ROBEL PRN Reason: Protocol Stop: 08/05/17 08:59 Last Admin: 02/06/17 07:57 Dose: 1 tab Departure - Departure Disposition: [facility] Inpatient Acute Clinical Impression: Generalized weakness, Tachycardia, Dehydration, DNR (do not resuscitate), Thrombocytopenia, SVT (supraventricular tachycardia) Lymphoma Qualifiers: Lymphoma type: unspecified type Lymphoma site: unspecified region Qualified Code(s): C85.90 - Non-Hodgkin lymphoma, unspecified, unspecified site Anemia Qualifiers: Anemia type: unspecified type Qualified Code(s): D64.9 - Anemia, unspecified Condition: Fair
[2017-02-06 01:15] VITALS: RESP 20
[2017-02-06 01:25] LABS: ADD DIFF? YES; ADD MORPH? YES; FRAGMENT RBC FLAG 0 (0-99); HEMATOCRIT 25.3 % (40.0-51.0); LEFT SHIFT FLG 10 (0-99); LIPEMIA HEMOLYSIS FLAG 90 (0-99); MEAN CELL HEMOGLOBIN 34.7 pg (27.9-34.1); MEAN CELL HEMOGLOBIN CONCENTR. 35.6 g/dL (32.4-36.7); MEAN CELL VOLUME 97.7 fL (81.5-99.8); MEAN PLATELET VOLUME 10.6 fL (8.7-11.7); NRBC-AUTO% 0.2 % (0.0-0.2); PLATELET CLUMPS FLAG 70 (0-99); RED BLOOD CELL COUNT 2.59 10^6/uL (4.40-6.38)
[2017-02-06 01:26] LABS: RED CELL DISTRIBUTION WIDTH 21.4 % (11.5-15.2)
[2017-02-06 01:27] LABS: ATYPICAL LYMPHOCYTE FLAG 300 (0-99)
[2017-02-06 01:28] LABS: ADD SCAN? NO
[2017-02-06 01:29] LABS: PLATELET COUNT < 3.0 10^3/uL (150-400)
[2017-02-06 01:32] LABS: APTT 29.8 SEC (23.0-38.0); INR 2.81 (0.83-1.16); PROTIME(PATIENT) 29.5 SEC (12.0-15.0)
[2017-02-06 01:52] LABS: ALANINE AMINOTRANSFERASE 51 IU/L (21-72); ALBUMIN 3.3 g/dL (3.5-5.0); ALKALINE PHOSPHATASE 390 IU/L (38-126); ANION GAP 19 mEq/L (8-16); ASPARTATE AMINOTRANSFERASE 59 IU/L (17-59); BILIRUBIN,TOTAL 6.8 mg/dL (0.1-1.4); BILIRUBIN-CONJUGATED 4.8 mg/dL (0.0-0.5); CARBON DIOXIDE 19 mEq/l (22-31); CHLORIDE 102 mEq/L (97-110); GLOMERULAR FILTRATION RATE > 60; GLUCOSE 318 mg/dL (70-100); POTASSIUM 4.1 mEq/L (3.5-5.2); SODIUM 140 mEq/L (134-144); TOTAL PROTEIN 6.8 g/dL (6.3-8.2)
[2017-02-06] MEDS ORDERED: HYDROmorphONE/DILAUDID 1 MG/ML INJ IVP PRN (02:08)
[2017-02-06] MEDS ORDERED: diphenhydrAMINE 25 MG CAP PO PRN (02:08)
[2017-02-06] MEDS ORDERED: ONDANSETRON 4 MG/2 ML VIAL IVP PRN (02:08)
[2017-02-06] MEDS ORDERED: LORazepam 0.5 MG TAB PO PRN (02:08)
[2017-02-06] MEDS ORDERED: PROMETHAZINE HCL 25 MG/ML INJ IVP PRN (02:08)
[2017-02-06] MEDS ORDERED: ACETAMINOPHEN 325 MG TAB PO PRN (02:08)
[2017-02-06] MEDS ORDERED: oxyCODONE ORAL SOLUTION 10 MG/0.5 ML UDSYR PO PRN (02:10)
[2017-02-06 03:12] VITALS: BP 106/68; PULSE 114; TEMP 97.5; O2SAT 93
[2017-02-06] MEDS ORDERED: LACTULOSE 20 GM/30 ML UDCUP PO PRN (03:55)
[2017-02-06] MEDS ORDERED: MAGNESIUM HYDROXIDE 30 ML UDCUP PO PRN (03:55)
[2017-02-06] MEDS ORDERED: BISACODYL 10 MG SUPP PR PRN (03:55)
[2017-02-06] MEDS ORDERED: POLYETHYLENE GLYCOL 3350 17 GM PKT PO PRN (03:55)
[2017-02-06 04:57] LABS: PLATELET ESTIMATE DECREASED (ADEQ)
[2017-02-06 05:02] LABS: KERATOCYTES 1+; MICROCYTES 1+
[2017-02-06 05:03] LABS: ELLIPTOCYTES 1+
--- NOTE | 2017-02-06 05:13 | GHP ---
[f rep st] HISTORY AND PHYSICAL DATE OF ADMISSION: 02/06/2017 SOURCE: Patient provides history, appears reliable, his electronic medical record including recent h ospital stay in December 2016 was also reviewed and case discussed with ED provider. CHIEF COMPLAINT: Intractable nausea and vomiting. 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 Patient states that he has been unable t o keep anything down. He denies any fevers, chills. No sick contacts. No other recent illnesses. He denies any diarrhea. He notes that he actually feels a little constipated, despite stool softener s on a daily basis. The patient has had decreased oral intake. He just overall feels quite weak wit hout any focal deficit complaints. The patient reports increased shortness of breath since onset of his symptoms. He denies any chest pain or palpitations. No lower extremity swelling, worse than bas radha. The patient's primary on-call oncologist is Dr. Lockett. Apparently, after further discussions regardi ng any possible options for treatment. Patient has elected to pursue comfort measures only. He actu ally had appointment scheduled for later this morning at his home with [facility] for [facility]. Apparently, patient has had progressive decline in his concern that his needs of care wi ll be too great at home. REVIEW OF SYSTEMS: Negative, except as noted above. ALLERGIES: No known drug allergies. The patient reports history of hay fever. PAST MEDICAL HISTORY: Significant for T-cell lymphoma status post bone marrow transplant and chemoth erapy, anemia, neutropenic fever, pancytopenia, prostate cancer, status post prostatectomy, history o f PE on 2 separate episodes, hypertension, hyperlipidemia, pneumonia with complications of sepsis. PAST SURGICAL HISTORY: Significant for appendectomy, bone marrow transplant, prostatectomy, left ana luisa st port placement. FAMILY HISTORY: Significant for CAD. No history of malignancies in the family. SOCIAL HISTORY: The patient is , lives with his . He does not smoke or use any illicit d rugs or marijuana. He does drink only rare alcohol intake. CODE STATUS: DNR/DNI. PHYSICAL EXAMINATION: VITAL SIGNS: Upon arrival to the emergency department, blood pressure 131/71, heart rate 166, respiratory rate 20, O2 saturation 96% on room air with a temperature of 36.7. Meliza samuel at time of interview, blood pressure 106/68, heart rate 114, respiratory rate 20, O2 saturation 93 % on 2 L by nasal cannula with temperature of 36.4. GENERAL: No acute distress, pleasant, acute on chronically ill gentleman is lying quietly in bed, lying very still. He does not appear toxic. HEAD : Normocephalic, atraumatic. EYES: Extraocular muscles grossly intact. No scleral icterus or conj unctival injection appreciated. Pupils are equal, round, slightly decreased reactivity to light bila terally and symmetric. No scleral icterus. ENT: Mucous membranes appear significantly dry. No leah arent oropharyngeal erythema or exudates. NECK: Supple. Trachea midline. CV: Tachycardic with sl ightly distant heart sounds, possibly a very faint murmur, but limited secondary to patient's tachyca rdia. No chest wall tenderness to palpation. RESPIRATORY: Grossly clear to auscultation, limited se condary to patient's position, as he is lying quite still with complaints of nausea, vomiting. Lung sounds diminished at the bases with decreased inspiratory effort. ABDOMEN: Obese, soft, nontender t o palpation. No rebound, guarding, or masses appreciated. : No Taylor in place. No suprapubic te nderness to palpation. EXTREMITIES: Patient with trace edema bilaterally. 2+ pedal pulses. NEURO: Grossly nonfocal. No facial drooping. Patient is able to move his extremities while lying in bed. PSYCH: Affect is flat, but again patient does not appear to feel well, but he is still very pleasa nt and cooperative. LABORATORY STUDIES: WBCs 47.76 thousand, H and H 9.0 and 25.3, MCV 97.7, platelet count is less than 3000, neutrophil percent not reported. PT is 29.5, INR 2.81, PTT is 29.8. Sodium is 140, potassium 4.1, chloride 102, CO2 19, anion gap 19, BUN 9, creatinine 1.0, GFR greater than 60, glucose 318, calcium 9.0, total bilirubin 0.8, conjugated bilirubin 4.8, unconjugated biliru bin 2.0, ALT 51, AST 59, alk phos is 390, total protein 6.8, albumin is 3.3, lipase 96. EKG reviewed myself showing SVT in the 160s, with 3 pole changes likely related to rate. No acute ST elevations. ASSESSMENT AND PLAN: A very pleasant 66-year-old gentleman unfortunately with a history of T-cell ly mphoma, status post failed chemotherapy and remote bone marrow biopsy, who now presents with complain ts of intractable nausea, vomiting, and episode of hematemesis. 1. Intractable nausea and vomiting, currently improved status post antiemetics. Will continue with Zofran, Phenergan, Ativan, and Benadryl will all be available p.r.n. 2. Report of hematemesis with recurrent nausea, vomiting is likely a Rosi-Rinaldi tear, gastritis, less likely ulcer, esophageal varices, as patient desires to focus on comfort measures. He does not want any transfusions of any blood products. Will discontinue further lab testing. 3. Thrombocytopenia, as noted above. 4. Anemia, as noted above. 5. T-cell lymphoma. Oncology consulted from the emergency room, and they will plan to visit with th e patient tomorrow. [facility] has also been consulted from the emergency department. 6. Anion gap elevation, likely secondary to volume contraction. The patient is amenable to receivin g some IV fluids and antiemetics, and will continue with supportive care. No further labs. 7. Constipation. Bowel regimen has been ordered p.r.n.. 8. Hyperglycemia. Patient without any noted history of diabetes. Lipase was within normal limits a nd no suspicion for pancreatitis. Will advance diet as tolerated. No Accu-Cheks or labs consistent with patient's goals of comfort care. 9. Hyperbilirubinemia, likely related to patient's diagnoses as above. Supportive care. 10. Hypoalbuminemia, likely decreased in setting of acute illness, nausea, vomiting. Intravenous fl uids will continue. Antiemetics as above. 11. Fluid, electrolyte, nutrition. The patient will receive lactated Ringer overnight. His electro lytes on initial arrival were acceptable. No further replacement. Diet will be advanced as tolerate d to regular. 12. Prophylaxis. None in setting of bleeding and comfort care. 13. Cor status. Do not resuscitate, do not intubate. 14. Disposition. The patient will be admitted to observation at this time on the oncology floor. W ill await further evaluation and acceptance of the patient to hospice inpatient care as per his wishe s for increased assistance and support. /[id number]/MODL
[2017-02-06] MEDS ORDERED: SENNOSIDES/DOCUSATE SODIUM TAB PO SCH (09:00)
--- NOTE | 2017-02-06 13:24 | SOAPPROG ---
SOAP Progress Note Assessment/Plan: Assessment: - Patient with end stage T-cell prolymphocytic lymphoma. He ended therapy yesterday and was to meet with hospice this AM. Last night he was admitted with nausea/vomiting/tachycardia. I spoke with his . She felt like they were 'in and inbetween place' in their care, so they came to the hospital. The patient and his are still desirous of hospice and best supportive care. Hospice is to meet with them this afternoon at about 2PM Plan: Hospice evaluation Discharge when appropriate care is arranged No transfusions Primary oncologist (Dr. Lockett) notified. I'll sign off. Please call with questions Subjective: Less nausea today. Fatigued. Objective: Vital Signs Temp Pulse Resp BP Pulse Ox 36.4 C 114 H 20 106/68 93 02/06/17 03:11 02/06/17 03:11 02/06/17 03:11 02/06/17 03:11 02/06/17 03:11 02/04/17 02/05/17 02/06/17 23:59 23:59 23:59 Intake Total 1050 Output Total 200 Balance 850 PT 29.5 SEC (12.0-15.0) H 02/06/17 01:00 INR 2.81 (0.83-1.16) H 02/06/17 01:00 Physical Exam - Physical Exam General Appearance: mild distress Skin: pallor ICD10 Worksheet Patient Problems: Problems Problem Status Onset Anemia Acute DNR (do not resuscitate) Acute Dehydration Acute Generalized weakness Acute Lymphoma Acute SVT (supraventricular tachycardia) Acute Tachycardia Acute Thrombocytopenia Acute Adenocarcinoma of prostate Acute Fever Acute Left sided chest pain Acute Left upper arm pain Acute Pneumonia Acute Severe sepsis Acute Syncope and collapse Acute
--- NOTE | 2017-02-06 15:29 | ASDISCHSUM ---
Discharge Information Plan Status:Hospice-Inpatient Medically Cleared to Leave:02/05/2017 Discharge Date:02/06/2017 05:30 PM D/C Disposition:Hospice Facility ADT D/C Disposition:Hospice Facility Projected Discharge Date:02/06/2017 11:00 AM Transportation at D/C:ALS/BLS Discharge Delay Reason: Follow-Up Date:02/06/2017 11:00 AM Discharge Slot: Final Diagnosis: Placement Information Referral Type:*Hospice Referral ID:[id number] Provider Name:[facility] Address 1:[address] [place] Address 2: City:[place] Selection Factors: State:[place] Referral Type:*Hospice Referral ID:[id number] Provider Name: Address 1: Phone Number: Address 2: Fax Number: City: Selection Factors: State: Patient Contact Information Contact Name:LIBBYROGELIO Relationship: Address:[address] City:[place] [facility] Phone: State/Zip Code:[place] [address] Email: Financial Information Financial Class: Primary Plan Desc:MEDICARE OUTPATIENT Primary Plan Number:[id number] Secondary Plan Desc:[facility] Secondary Plan Number:[id number] Assessment Information [facility] CM Progress Note CM Note CM Note Notes: Pt admitted with FTT, intractable n/v, anemia 2/2 leukemia. Pt and family had [facility] hosp[facility] appointment this morning at home. Contacted [facility] - their RN will be here at 2:00 to discuss pt's options re going home with hospice after stablization or whether [facility]. Referral and hospice order sent to [facility]. Date Signed: 02/06/2017 03:35 PM Electronically Signed By:SOSA Burnett Intervention Information Intervention Type:*WILL-Signed Date of Service:02/06/2017 10:06 AM Patient Type:Observation Staff Member:Bibi Rodriguez Hours: Discipline: Severity: Comment:
--- NOTE | 2017-02-06 15:35 | ASMTCMCOM ---
CM Note CM Note Notes: Pt admitted with FTT, intractable n/v, anemia 2/2 leukemia. Pt and family had [facility] hospice appointment this morning at home. Contacted [facility] - their RN will be here at 2:00 to discuss pt's options re going home with hospice after stablization or whether he is appropriate for the [facility] care center. Referral and hospice order sent to [facility]. Date Signed: 02/06/2017 03:35 PM Electronically Signed By:SOSA Burnett
--- NOTE | 2017-02-06 19:32 | PDDCSUM ---
Discharge Summary Discharge Summary: DISCHARGE DIAGNOSES: -intractable nausea and vomiting -question of hematemesis, upper GI bleed but no bleeding here in the hospital -end-stage T cell lymphoma, status post failed transplant, unable to tolerate recent chemotherapy CONSULTANTS: Dr. Neal Goodson Hospice team HOSPITAL COURSE SUMMARY: This patient with advanced T-cell lymphoma status post failed transplant and unable to tolerate recent can mow therapy, came into hospital because of intractable nausea vomiting. He was very weak, confused. There was no fever. It is possible there was some bleeding as there was question of hematemesis at home but he did not have any bleeding here. Notably the patient had previously arranged for a hospice consultation at his home with [facility] which was to have happened yesterday. This had been canceled as he came to the hospital. The patient is family requested that he have palliative care here and that we continue the hospice evaluation here. We did provide comfort measures here without any other specific therapy for him and we were able to keep him reasonably comfortable. They hospice group did come and patient and family chose to go to the inpatient hospice care center today. He was transferred there with orders in place for ongoing comfort measures and hospice care. By the time the patient was transferred he was becoming more confused and was difficult to assess his actual true physical discomfort but by examining him he did appear to be fairly comfortable an are palliative measures seem to be working well for him. PENDING TEST RESULTS: None MEDICATION CHANGES: All medicines were discontinued other than comfort medications. Pain medicines , anxiety medicines, laxatives, and other comfort measures were included. FOLLOW-UP PLAN: Ongoing care for now at the inpatient hospice care center at the [facility] Greater than 35 minutes bedside and care coordination time today during 3 visits
== END 2017-02-06 17:30 | disposition hospice, home (50) ==
LOC: EDUNIT# → F1N 03:04
PROVIDERS: ADMIT Family Medicine; ATTEND Internal Medicine
PROC: 30233R1 Transfusion of Nonautologous Platelets into Peripheral Vein, Percutaneous Approach (ICD-10-PCS; principal; 2017-02-06)
PROC: 30233N1 Transfusion of Nonautologous Red Blood Cells into Peripheral Vein, Percutaneous Approach (ICD-10-PCS; principal; 2017-02-06)
DX: R11.2 Nausea with vomiting, unspecified (principal); C91.60 Prolymphocytic leukemia of T-cell type not having achieved remission; T45.1X5A Adverse effect of antineoplastic and immunosuppressive drugs, initial encounter; E86.0 Dehydration; D63.0 Anemia in neoplastic disease; D69.59 Other secondary thrombocytopenia; K59.00 Constipation, unspecified; R73.9 Hyperglycemia, unspecified; E88.09 Other disorders of plasma-protein metabolism, not elsewhere classified; E80.6 Other disorders of bilirubin metabolism; I25.10 Atherosclerotic heart disease of native coronary artery without angina pectoris; I10 Essential (primary) hypertension; E78.5 Hyperlipidemia, unspecified; Z79.82 Long term (current) use of aspirin; Z86.711 Personal history of pulmonary embolism; Z85.46 Personal history of malignant neoplasm of prostate; Z82.49 Family history of ischemic heart disease and other diseases of the circulatory system; Z94.81 Bone marrow transplant status; Z66 Do not resuscitate
CPT/HCPCS: 93005; G0378; J2405; J2550